=== PATIENT | male | born 1970 | race Caucasian/White ===

== ENCOUNTER 2016-06-05 16:31 | Emergency (ER) | payer OTHER, SELFPAY ==
[~2016-06-05 16:31] MED LIST: AUGM875T27 PO; CELE-19 PO; NEUR600T PO; PERCOCET PO; ROXI1TAB2 PO
--- NOTE | 2016-06-05 18:23 | EDDOCDS ---
Nurse's Notes [facility] Name: Tee Malhotra Age: 46 yrs Sex: Male : 1970 Arrival Date: 06/05/2016 Time: 16:31 Bed PR Private MD: Fredy Ocampo Diagnosis: Acute upper respiratory infection, unspecified Presentation: 06/05 16:35 Presenting complaint: Patient states: sore throat, congestion, cough. Adult Sepsis jo3 Screening: The patient does not have new or worsening altered mentation. Patient's respiratory rate is less than 22. Systolic blood pressure is greater than 100. Patient has a qSOFA score of 0- Negative Sepsis Screen. Suicide/Homicide risk assessment- the patient denies having any suicidal and/or homicidal ideations and does not present with any other emotional, behavioral or mental health complaints. 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 Transition of care: patient was not received from another setting of care. 16:35 Acuity: SHEREE Level 4 jo3 16:35 Method Of Arrival: Walkin/Carried/Asstd jo3 Triage Assessment: 16:37 General: Appears in no apparent distress, Behavior is appropriate for age, cooperative. jo3 HIV screening NA for this visit Offered previously. Neurological: Level of Consciousness is awake, alert, Oriented to person, place, time. Respiratory: No deficits noted. Airway is patent Respiratory effort is even, unlabored. Historical: - Allergies: No known drug Allergies; - Home Meds: 1. none - PMHx: alcoholism (sober x17 years); back sprain (2000); Hypertension; tachycardia; - PSHx: Appendectomy (2013); Tonsillectomy; - Social history: Smoking status: Patient uses tobacco products, heavy tobacco smoker. No barriers to communication noted, The patient speaks fluent Kuwaiti, Speaks appropriately for age. - Family history: Not pertinent. - : The pt / caregiver states he / she is not on anticoagulants. Home medication list is obtained from the patient. - Exposure Risk Screening:: None identified. Screenin:20 Screening information is obtained from the patient. Fall risk: No risks identified. ck1 Assistance ADL's: requires no assistance with activities of daily living. Abuse/DV Screen: The patient / caregiver reports he/she is: not in a situation that causes fear, pain or injury. Nutritional screening: No deficits noted. Advance Directives: Currently, there is no health care proxy. home support is adequate. Assessment: 18:20 General: Appears in no apparent distress, comfortable, Behavior is appropriate for age, ck1 cooperative. Pain: Denies pain. Neurological: Level of Consciousness is awake, alert, obeys commands, Oriented to person, place, time. Respiratory: Respiratory effort is unlabored, Respiratory pattern is regular, symmetrical. GI: No deficits noted. Derm: Skin is pink, warm & dry. Musculoskeletal: Circulation, motion, and sensation intact Range of motion intact in all extremities. Vital Signs: 16:33 BP 147 / 75; Pulse 99; Resp 18 S; Temp 97.1(O); Pulse Ox 99% on R/A; Weight 113.4 kg gr2 (R); Height 6 ft. 0 in. (182.88 cm) (R); Pain 5/10; 18:18 BP 156 / 99; Pulse 87; Resp 18; Temp 97.8(T); Pulse Ox 97% on R/A; Pain 0/10; nb2 16:33 Body Mass Index 33.91 (113.40 kg, 182.88 cm) gr2 Vitals: 16:33 Log In Time: June 05, 2016 at 16:33. gr2 17:22 Strep Screen is obtained and tested: Negative, a GATSNEG culture is ordered in [place] [address] and sent. ED Course: 16:32 Patient visited by Kendell Oliveira. gr2 16:32 Patient moved to Waiting gr2 16:33 Fredy Ocampo PA is Private Physician. gr2 16:34 Patient visited by Kendell Oliveira. gr2 16:34 Patient moved to Pre RCE gr2 16:36 Triage Initiated jo3 16:39 Patient visited by Judy Porras RN. jo3 16:39 Patient moved to Triage 2 jo3 16:39 Patient moved to Triage 3 nb2 16:50 Bartolome Keith [facility]-C [facility] ar2 16:50 Osmel Cardoza MD is Attending Physician. ar2 16:50 Patient visited by Bartolome Keith PA-C. ar2 17:10 [facility] Payment Agreement was scanned into [employer] and attached to record. zo 17:19 -Influenza A&B Rapid Antigen - Nose Sent. jf3 17:22 Patient visited by Lroi Church,JAKOB. ck1 17:22 Patient moved to TR2 jf3 17:24 GATS (NEGATIVE STREP SCREEN) Sent. ck1 17:48 Patient moved to PR2 / nb2 17:53 Patient visited by Lori Church,RN. ck1 18:19 Patient visited by Hina Alvarez. nb2 18:20 The patient / caregiver is instructed regarding the plan of care and ED course. ck1 18:22 No IV's were initiated during this patient's visit. No procedures done that require ck1 assistance. Order Results: Lab Order: -Influenza A&B Rapid Antigen - Nose; SPEC'M 06/05/16 17:14 Test: INFLUENZA A RAPID SCR by ICA; Value: INFLUENZA A RESULTS NEGATIVE; Status: F Test: INFLUENZA A RAPID SCR by ICA; Value: Comments:; Status: F Test: INFLUENZA B RAPID SCR by ICA; Value: INFLUENZA B RESULTS NEGATIVE; Status: F Test Note: ; The Influenza test is a direct rapid immunoassay for the qualitative detection of Influenza viral antigen. Cell culture (Viral Culture) testing should be considered to confirm NEGATIVE results and to assist in detecting other viruses that can provide similar clinical symptoms. Please contact the lab within 24 hours ([phone]) if confirmatory testing is desired. Outcome: 18:15 Discharge ordered by Provider. ar2 18:21 Discharge Assessment: Patient awake, alert and oriented x 3. No cognitive and/or ck1 functional deficits noted. Patient verbalized understanding of disposition instructions. patient administered narcotics - no. The following High Risk Discharge criteria are identified: None. Discharged to home ambulatory. Condition: stable. Discharge instructions given to patient, Instructed on discharge instructions, follow up and referral plans. medication usage, Demonstrated understanding of instructions, medications, Pt was receptive of discharge instructions/ teaching. Prescriptions given X 3. No special radiology studies were completed. Property :Personal belongings accompany Pt. 18:22 Patient left the ED. ck1 Signatures: Lori Church,JAKOB RN ck1 Judy Porras RN RN jo3 Tyra Lala Aaron, PA-C PA-C ar2 Kendell Oliveira gr2 Roger Barnhart RN RN jf3 Hina Alvarez nb2 MTDD
--- NOTE | 2016-06-05 18:23 | EDDOCDS ---
Physician Documentation [facility] Name: Tee Malhotra Age: 46 yrs Sex: Male : 1970 Arrival Date: 06/05/2016 Time: 16:31 Bed PR Private MD: Fredy Ocampo Disposition: 06/05/16 18:15 Discharged to Home/Self Care. Impression: Acute upper respiratory infection, unspecified. - Condition is Stable. - Discharge Instructions: Upper Respiratory Infection, Adult. - Prescriptions for Mucinex 600 mg - take 1 tablet by ORAL route 2 times per day; 30 tablet. benzonatate 200 mg Oral Capsule - take 1 capsule by ORAL route 3 times per day As needed; 30 capsule. Fluticasone 50 mcg/actuation Nasal [place], Suspension - inhale 2 spray by INTRANASAL route once daily; 1 bottle. - Medication Reconciliation, Local Pharmacy Hours form. - Follow up: Private Physician; When: As needed; Reason: Recheck today's complaints. - Problem is new. - Symptoms are unchanged. Historical: - Allergies: No known drug Allergies; - Home Meds: 1. none - PMHx: alcoholism (sober x17 years); back sprain (2000); Hypertension; tachycardia; - PSHx: Appendectomy (2013); Tonsillectomy; - Social history: Smoking status: Patient uses tobacco products, heavy tobacco smoker. No barriers to communication noted, The patient speaks fluent Turkmen, Speaks appropriately for age. - Family history: Not pertinent. - : The pt / caregiver states he / she is not on anticoagulants. Home medication list is obtained from the patient. - Exposure Risk Screening:: None identified. Vital Signs: 06/05 16:33 BP 147 / 75; Pulse 99; Resp 18 S; Temp 97.1(O); Pulse Ox 99% on R/A; Weight 113.4 kg / gr2 250 lbs (R); Height 6 ft. 0 in. (182.88 cm) (R); Pain 5/10; 18:18 BP 156 / 99; Pulse 87; Resp 18; Temp 97.8(T); Pulse Ox 97% on R/A; Pain 0/10; nb2 16:33 Body Mass Index 33.91 (113.40 kg, 182.88 cm) gr2 MDM: 16:55 Strep Screen, Nursing ordered. ar2 16:57 -Influenza A&B Rapid Antigen - Nose Ordered. EDMS 17:09 Financial registration complete. zo 17:10 [facility] Payment Agreement was scanned into [employer] and attached to record. zo 17:23 GATS (NEGATIVE STREP SCREEN) Ordered. EDMS 18:00 -Influenza A&B Rapid Antigen - Nose Reviewed. ar2 Signatures: Dispatcher MedHost EDWY Lori ChurchRN RN ck1 Judy Porras RN RN jo3 Tyra Lala Aaron, PA-C PAAsia ar2 The chart was reviewed and I authenticate all verbal orders and agree with the evaluation and treatment provided.Attachments: 17:10 [facility] Payment Agreement zo MTDD
--- NOTE | 2016-06-07 19:23 | EDDOCDS ---
Physician Documentation [facility] Name: Tee Malhotra Age: 46 yrs Sex: Male : 1970 Arrival Date: 06/05/2016 Time: 16:31 Bed PR Private MD: Fredy Ocampo Disposition: 06/05/16 18:15 Discharged to Home/Self Care. Impression: Acute upper respiratory infection, unspecified. - Condition is Stable. - Discharge Instructions: Upper Respiratory Infection, Adult. - Prescriptions for Mucinex 600 mg - take 1 tablet by ORAL route 2 times per day; 30 tablet. benzonatate 200 mg Oral Capsule - take 1 capsule by ORAL route 3 times per day As needed; 30 capsule. Fluticasone 50 mcg/actuation Nasal [place], Suspension - inhale 2 spray by INTRANASAL route once daily; 1 bottle. - Medication Reconciliation, Local Pharmacy Hours form. - Follow up: Private Physician; When: As needed; Reason: Recheck today's complaints. - Problem is new. - Symptoms are unchanged. Historical: - Allergies: No known drug Allergies; - Home Meds: 1. none - PMHx: alcoholism (sober x17 years); back sprain (2000); Hypertension; tachycardia; - PSHx: Appendectomy (2013); Tonsillectomy; - Social history: Smoking status: Patient uses tobacco products, heavy tobacco smoker. No barriers to communication noted, The patient speaks fluent Niuean, Speaks appropriately for age. - Family history: Not pertinent. - : The pt / caregiver states he / she is not on anticoagulants. Home medication list is obtained from the patient. - Exposure Risk Screening:: None identified. Vital Signs: 06/05 16:33 BP 147 / 75; Pulse 99; Resp 18 S; Temp 97.1(O); Pulse Ox 99% on R/A; Weight 113.4 kg / gr2 250 lbs (R); Height 6 ft. 0 in. (182.88 cm) (R); Pain 5/10; 18:18 BP 156 / 99; Pulse 87; Resp 18; Temp 97.8(T); Pulse Ox 97% on R/A; Pain 0/10; nb2 16:33 Body Mass Index 33.91 (113.40 kg, 182.88 cm) gr2 MDM: 16:55 Strep Screen, Nursing ordered. ar2 16:57 -Influenza A&B Rapid Antigen - Nose Ordered. EDMS 17:09 Financial registration complete. zo 17:10 [facility] Payment Agreement was scanned into [employer] and attached to record. zo 17:23 GATS (NEGATIVE STREP SCREEN) Ordered. EDMS 18:00 -Influenza A&B Rapid Antigen - Nose Reviewed. ar2 06/06 10:49 T-Sheet-- Draft Copy was scanned into [employer] and attached to record. gb Signatures: Dispatcher MedHost EDMS Christine Marshall, Reg Reg gb Paola-Lori Guallpa,RN RN ck1 Judy PorrasRN RN jo3 Tyra Lala Aaron, PA-C PAAsia ar2 The chart was reviewed and I authenticate all verbal orders and agree with the evaluation and treatment provided.Attachments: 06/05 17:10 [facility] Payment Agreement zo 06/06 10:49 T-Sheet-- Draft Copy gb Chart Complete MTDD
--- NOTE | 2016-06-07 19:23 | EDDOCDS ---
Nurse's Notes [facility] Name: Tee Malhotra Age: 46 yrs Sex: Male : 1970 Arrival Date: 06/05/2016 Time: 16:31 Bed PR Private MD: Fredy Ocampo Diagnosis: Acute upper respiratory infection, unspecified Presentation: 06/05 16:35 Presenting complaint: Patient states: sore throat, congestion, cough. Adult Sepsis jo3 Screening: The patient does not have new or worsening altered mentation. Patient's respiratory rate is less than 22. Systolic blood pressure is greater than 100. Patient has a qSOFA score of 0- Negative Sepsis Screen. Suicide/Homicide risk assessment- the patient denies having any suicidal and/or homicidal ideations and does not present with any other emotional, behavioral or mental health complaints. Status: Patient is not a room service server or dependent. Transition of care: patient was not received from another setting of care. 16:35 Acuity: SHEREE Level 4 jo3 16:35 Method Of Arrival: Walkin/Carried/Asstd jo3 Triage Assessment: 16:37 General: Appears in no apparent distress, Behavior is appropriate for age, cooperative. jo3 HIV screening NA for this visit Offered previously. Neurological: Level of Consciousness is awake, alert, Oriented to person, place, time. Respiratory: No deficits noted. Airway is patent Respiratory effort is even, unlabored. Historical: - Allergies: No known drug Allergies; - Home Meds: 1. none - PMHx: alcoholism (sober x17 years); back sprain (2000); Hypertension; tachycardia; - PSHx: Appendectomy (2013); Tonsillectomy; - Social history: Smoking status: Patient uses tobacco products, heavy tobacco smoker. No barriers to communication noted, The patient speaks fluent Cymraes, Speaks appropriately for age. - Family history: Not pertinent. - : The pt / caregiver states he / she is not on anticoagulants. Home medication list is obtained from the patient. - Exposure Risk Screening:: None identified. Screenin:20 Screening information is obtained from the patient. Fall risk: No risks identified. ck1 Assistance ADL's: requires no assistance with activities of daily living. Abuse/DV Screen: The patient / caregiver reports he/she is: not in a situation that causes fear, pain or injury. Nutritional screening: No deficits noted. Advance Directives: Currently, there is no health care proxy. home support is adequate. Assessment: 18:20 General: Appears in no apparent distress, comfortable, Behavior is appropriate for age, ck1 cooperative. Pain: Denies pain. Neurological: Level of Consciousness is awake, alert, obeys commands, Oriented to person, place, time. Respiratory: Respiratory effort is unlabored, Respiratory pattern is regular, symmetrical. GI: No deficits noted. Derm: Skin is pink, warm & dry. Musculoskeletal: Circulation, motion, and sensation intact Range of motion intact in all extremities. Vital Signs: 16:33 BP 147 / 75; Pulse 99; Resp 18 S; Temp 97.1(O); Pulse Ox 99% on R/A; Weight 113.4 kg gr2 (R); Height 6 ft. 0 in. (182.88 cm) (R); Pain 5/10; 18:18 BP 156 / 99; Pulse 87; Resp 18; Temp 97.8(T); Pulse Ox 97% on R/A; Pain 0/10; nb2 16:33 Body Mass Index 33.91 (113.40 kg, 182.88 cm) gr2 Vitals: 16:33 Log In Time: June 05, 2016 at 16:33. gr2 17:22 Strep Screen is obtained and tested: Negative, a GATSNEG culture is ordered in [place] [address] and sent. ED Course: 16:32 Patient visited by Kendell Oliveira. gr2 16:32 Patient moved to Waiting gr2 16:33 Fredy Ocampo PA is Private Physician. gr2 16:34 Patient visited by Kendell Oliveira. gr2 16:34 Patient moved to Pre RCE gr2 16:36 Triage Initiated jo3 16:39 Patient visited by Judy Porras RN. jo3 16:39 Patient moved to Triage 2 jo3 16:39 Patient moved to Triage 3 nb2 16:50 Bartolome Keith [facility]. ar2 16:50 Osmel Cardoza MD is Attending Physician. ar2 16:50 Patient visited by Bartolome Keith PA-C. ar2 17:10 [facility] Payment Agreement was scanned into [employer] and attached to record. zo 17:19 -Influenza A&B Rapid Antigen - Nose Sent. jf3 17:22 Patient visited by Lori Church,JAKOB. ck1 17:22 Patient moved to TR2 jf3 17:24 GATS (NEGATIVE STREP SCREEN) Sent. ck1 17:48 Patient moved to PR2 / nb2 17:53 Patient visited by Lori Church,RN. ck1 18:19 Patient visited by Hina Alvarez. nb2 18:20 The patient / caregiver is instructed regarding the plan of care and ED course. ck1 18:22 No IV's were initiated during this patient's visit. No procedures done that require ck1 assistance. 06/06 10:49 T-Sheet-- Draft Copy was scanned into [employer] and attached to record. gb Order Results: Lab Order: -Influenza A&B Rapid Antigen - Nose; SPEC'M 06/05/16 17:14 Test: INFLUENZA A RAPID SCR by ICA; Value: INFLUENZA A RESULTS NEGATIVE; Status: F Test: INFLUENZA A RAPID SCR by ICA; Value: Comments:; Status: F Test: INFLUENZA B RAPID SCR by ICA; Value: INFLUENZA B RESULTS NEGATIVE; Status: F Test Note: ; The Influenza test is a direct rapid immunoassay for the qualitative detection of Influenza viral antigen. Cell culture (Viral Culture) testing should be considered to confirm NEGATIVE results and to assist in detecting other viruses that can provide similar clinical symptoms. Please contact the lab within 24 hours ([phone]) if confirmatory testing is desired. Lab Order: GATS (NEGATIVE STREP SCREEN); SPEC'M 06/05/16 00:00 Test: GATS CULTURE (NEG STREP SCR); Value: GATS RESULT NEGATIVE FOR STREP PYOGENES (GROUP A); Status: F Test: GATS CULTURE (NEG STREP SCR); Value: <EXTERNAL COMMENT eCWMed> FULL REPORT IN LAB NOTES (eCW and Medent).; Status: F Outcome: 06/05 18:15 Discharge ordered by Provider. ar2 18:21 Discharge Assessment: Patient awake, alert and oriented x 3. No cognitive and/or ck1 functional deficits noted. Patient verbalized understanding of disposition instructions. patient administered narcotics - no. The following High Risk Discharge criteria are identified: None. Discharged to home ambulatory. Condition: stable. Discharge instructions given to patient, Instructed on discharge instructions, follow up and referral plans. medication usage, Demonstrated understanding of instructions, medications, Pt was receptive of discharge instructions/ teaching. Prescriptions given X 3. No special radiology studies were completed. Property :Personal belongings accompany Pt. 18:22 Patient left the ED. ck1 Signatures: Christine Marshall, Reg Reg gb Lori Church,RN RN ck1 Judy PorrasRN RN veena3 Trya Lala Aaron, PA-C PA-C ar2 Kendell Oliveira gr2 Roger Barnhart,JAKOB RN jf3 Hina Alvarez nb2 Chart Complete MTDD
--- NOTE | 2016-06-07 19:23 | EDDOCDS ---
Physician Documentation [facility] Name: Tee Malhotra Age: 46 yrs Sex: Male : 1970 Arrival Date: 06/05/2016 Time: 16:31 Bed PR Private MD: Fredy Ocampo Disposition: 06/05/16 18:15 Discharged to Home/Self Care. Impression: Acute upper respiratory infection, unspecified. - Condition is Stable. - Discharge Instructions: Upper Respiratory Infection, Adult. - Prescriptions for Mucinex 600 mg - take 1 tablet by ORAL route 2 times per day; 30 tablet. benzonatate 200 mg Oral Capsule - take 1 capsule by ORAL route 3 times per day As needed; 30 capsule. Fluticasone 50 mcg/actuation Nasal [place], Suspension - inhale 2 spray by INTRANASAL route once daily; 1 bottle. - Medication Reconciliation, Local Pharmacy Hours form. - Follow up: Private Physician; When: As needed; Reason: Recheck today's complaints. - Problem is new. - Symptoms are unchanged. Historical: - Allergies: No known drug Allergies; - Home Meds: 1. none - PMHx: alcoholism (sober x17 years); back sprain (2000); Hypertension; tachycardia; - PSHx: Appendectomy (2013); Tonsillectomy; - Social history: Smoking status: Patient uses tobacco products, heavy tobacco smoker. No barriers to communication noted, The patient speaks fluent Swiss, Speaks appropriately for age. - Family history: Not pertinent. - : The pt / caregiver states he / she is not on anticoagulants. Home medication list is obtained from the patient. - Exposure Risk Screening:: None identified. Vital Signs: 06/05 16:33 BP 147 / 75; Pulse 99; Resp 18 S; Temp 97.1(O); Pulse Ox 99% on R/A; Weight 113.4 kg / gr2 250 lbs (R); Height 6 ft. 0 in. (182.88 cm) (R); Pain 5/10; 18:18 BP 156 / 99; Pulse 87; Resp 18; Temp 97.8(T); Pulse Ox 97% on R/A; Pain 0/10; nb2 16:33 Body Mass Index 33.91 (113.40 kg, 182.88 cm) gr2 MDM: 16:55 Strep Screen, Nursing ordered. ar2 16:57 -Influenza A&B Rapid Antigen - Nose Ordered. EDMS 17:09 Financial registration complete. zo 17:10 [facility] Payment Agreement was scanned into [employer] and attached to record. zo 17:23 GATS (NEGATIVE STREP SCREEN) Ordered. EDMS 18:00 -Influenza A&B Rapid Antigen - Nose Reviewed. ar2 06/06 10:49 T-Sheet-- Draft Copy was scanned into [employer] and attached to record. gb Signatures: Dispatcher MedHost EDMS Christine Marshall, Reg Reg gb Paola-Lori Guallpa,RN RN ck1 Judy PorrasRN RN jo3 Tyra Lala Aaron, PA-C PAAsia ar2 The chart was reviewed and I authenticate all verbal orders and agree with the evaluation and treatment provided.Attachments: 06/05 17:10 [facility] Payment Agreement zo 06/06 10:49 T-Sheet-- Draft Copy gb Chart Complete MTDD
== END 2016-06-05 18:22 | disposition home or self-care (01) ==
LOC: M ED 16:31
DX: J02.9 Acute pharyngitis, unspecified (principal); F10.21 Alcohol dependence, in remission; I10 Essential (primary) hypertension; R00.0 Tachycardia, unspecified; F17.210 Nicotine dependence, cigarettes, uncomplicated

== ENCOUNTER 2016-06-08 03:20 | Emergency (ER) | payer SELFPAY ==
[2016-06-08] MEDS ORDERED: LEVALBUTEROL 1.25 MG/0.5 ML CONCENTRATE NEB As Ordered ONE (04:46)
[2016-06-08] MEDS ORDERED: dexameTHASONE 20 MG/5 ML VIAL (J1100) As Ordered ONE (04:48)
--- NOTE | 2016-06-08 06:43 | EDDOCDS ---
Physician Documentation [facility] Name: Tee Malhotra Age: 46 yrs Sex: Male : 1970 Arrival Date: 06/08/2016 Time: 03:20 Bed 17 Private MD: Disposition: 06/08/16 06:30 Discharged to Home/Self Care. Impression: Acute bronchitis. - Condition is Stable. - Prescriptions for Prednisone 20 mg Oral Tablet - take 3 tablets by ORAL route once daily for 4 days; 4 tablet. Zithromax Z- Larry 250 mg Oral Tablet - take 1 tablet by ORAL route as directed for 5 days Day 1- take two tablets once. Day 2, 3, 4 , 5 take one tablet once daily.; 6 tablet. - Medication Reconciliation, Local Pharmacy Hours form. - Follow up: Private Physician; When: Call to arrange an appointment; Reason: Recheck today's complaints. - Problem is new. - Symptoms have improved. Historical: - Allergies: No known drug Allergies; - Home Meds: 1. none - PMHx: alcoholism (sober x17 years); back sprain (2000); Hypertension; tachycardia; - PSHx: Tonsillectomy; Appendectomy; - Social history: Smoking status: Patient uses tobacco products, current every day smoker. No barriers to communication noted, The patient speaks fluent Georgian, Speaks appropriately for age. - Family history: Not pertinent. - : The pt / caregiver states he / she is not on anticoagulants. Home medication list is obtained from the patient. - Exposure Risk Screening:: None identified. Vital Signs: 06/08 03:32 BP 139 / 96; Pulse 94; Resp 18; Temp 98.5(T); Pulse Ox 95% on R/A; Weight 113.4 kg / cz 250 lbs; Height 6 ft. (182.88 cm); 06:40 BP 133 / 81; Pulse 90; Resp 20; Temp 98.9(TE); Pulse Ox 95% ; Pain 0/10; ko2 03:32 Body Mass Index 33.91 (113.40 kg, 182.88 cm) cz MDM: 04:30 Chest, 2 View (pa\E\lat) Ordered. EDMS 04:34 IV Saline Lock ordered. cs11 04:34 Dexamethasone 12 mg IV at bolus once ordered. cs11 04:34 Levalbuterol 1.25 mg Nebulizer every 15 minutes x3 ordered. cs11 04:34 Call Respiratory ordered. cs11 04:39 Call Respiratory complete. ml3 04:49 Financial registration complete. [facility] 05:16 [facility] Payment Agreement was scanned into [employer] and attached to record. [facility] Administered Medications: 04:50 Drug: Levalbuterol 1.25 mg [levalbuterol 1.25 mg/0.5 mL solution for nebulization (0.5 nk1 mL)] Route: Nebulizer; 04:55 Follow up: Response: Nebulizer completed nk1 04:56 Drug: Levalbuterol 1.25 mg [levalbuterol 1.25 mg/0.5 mL solution for nebulization (0.5 nk1 mL)] Route: Nebulizer; 05:08 Follow up: Response: Nebulizer completed nk1 05:16 Follow up: Response: Nebulizer completed nk1 04:57 Drug: Dexamethasone 12 mg [dexamethasone 4 mg/mL injection solution] Route: IV; Rate: ko2 bolus; Site: right forearm; Signatures: Dispatcher [employer]Ho Aron Interiano, RN RN Rita Pedraza, Payroll And Benefits Analyst Unit ml3 Gordon Michael DO DO cs11 Homa Whitnye RN RN ko2 Hook, Sandra [facility] [place] nk1 The chart was reviewed and I authenticate all verbal orders and agree with the evaluation and treatment provided.Attachments: 05:16 [facility] Payment Agreement [facility] MTDD
--- NOTE | 2016-06-08 06:43 | EDDOCDS ---
Nurse's Notes [facility] Name: Tee Malhotra Age: 46 yrs Sex: Male : 1970 Arrival Date: 06/08/2016 Time: 03:20 Bed 17 Private MD: Diagnosis: Acute bronchitis Presentation: 06/08 03:28 Presenting complaint: Patient states: he was seen 2 days ago for URI returns this a.m. cz with continued complaints of cough congestion and difficulty breathing. Adult Sepsis Screening: The patient does not have new or worsening altered mentation. Patient's respiratory rate is less than 22. Systolic blood pressure is greater than 100. Patient has a qSOFA score of 0- Negative Sepsis Screen. Suicide/Homicide risk assessment- the patient denies having any suicidal and/or homicidal ideations and does not present with any other emotional, behavioral or mental health complaints. 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 Transition of care: patient was not received from another setting of care. 03:28 Acuity: SHEREE Level 3 cz 03:28 Method Of Arrival: Walkin/Carried/Asstd cz Triage Assessment: 03:32 General: Appears uncomfortable. Pain: Location: chest Pain currently is 7 out of 10 on cz a pain scale. HIV screening NA for this visit Offered previously. Historical: - Allergies: No known drug Allergies; - Home Meds: 1. none - PMHx: alcoholism (sober x17 years); back sprain (2000); Hypertension; tachycardia; - PSHx: Tonsillectomy; Appendectomy; - Social history: Smoking status: Patient uses tobacco products, current every day smoker. No barriers to communication noted, The patient speaks fluent Kenyan, Speaks appropriately for age. - Family history: Not pertinent. - : The pt / caregiver states he / she is not on anticoagulants. Home medication list is obtained from the patient. - Exposure Risk Screening:: None identified. Screenin:41 Screening information is obtained from the patient. Fall risk: No risks identified. ko2 Assistance ADL's: requires no assistance with activities of daily living. Abuse/DV Screen: The patient / caregiver reports he/she is: not in a situation that causes fear, pain or injury. Nutritional screening: No deficits noted. Advance Directives: Currently, there is no health care proxy. There is no active DNR order. There is no living will. There is no Power of Facer Operator. home support is adequate. Assessment: 04:40 General: Appears in no apparent distress, Behavior is appropriate for age, cooperative. ko2 Neurological: Level of Consciousness is awake, alert. Respiratory: Airway is patent Respiratory effort is even, unlabored, Respiratory pattern is regular, symmetrical, Breath sounds are diminished bilaterally. Reports cough that is persistent. Derm: Skin is normal. 05:24 General: Appears in no apparent distress, comfortable, Behavior is appropriate for age, ko2 cooperative. Pain: Denies pain. Neurological: Level of Consciousness is awake, alert. Respiratory: Airway is patent Respiratory effort is even, unlabored. Derm: Skin is normal. 06:26 General: Appears in no apparent distress, comfortable, Behavior is appropriate for age, ko2 cooperative. Pain: Denies pain. Neurological: Level of Consciousness is awake, alert. Respiratory: Airway is patent Respiratory effort is even, unlabored, Respiratory pattern is regular, symmetrical. Derm: Skin is normal. Vital Signs: 03:32 BP 139 / 96; Pulse 94; Resp 18; Temp 98.5(T); Pulse Ox 95% on R/A; Weight 113.4 kg; cz Height 6 ft. (182.88 cm); 06:40 BP 133 / 81; Pulse 90; Resp 20; Temp 98.9(TE); Pulse Ox 95% ; Pain 0/10; ko2 03:32 Body Mass Index 33.91 (113.40 kg, 182.88 cm) cz Vitals: 03:32 Log In Time: June 08, 2016 at 03:22. ED Course: 03:22 Patient visited by Cinthia Mar Reg. hs2 03:22 Patient moved to Waiting hs2 03:28 Patient moved to Triage 1 cz 03:30 Triage Initiated cz 03:34 Patient moved to Pre RCE cz 04:02 Paola Sanders RN is Primary Nurse. cz 04:02 Homa Whitney RN is Primary Nurse. cz 04:02 Patient moved to 17 cz 04:20 Patient visited by Homa Whitney RN. ko2 04:23 Gordon Michael DO is Attending Physician. cs11 04:23 Patient visited by Gordon Michael DO. cs11 04:40 Primary Nurse role handed off by Paola Sanders RN ko2 04:41 Inserted saline lock: 20 gauge in right antecubital area. ko2 04:42 The patient / caregiver is instructed regarding the plan of care and ED course. ko2 04:57 Patient visited by Homa Whitney RN. ko2 05:16 [facility] Payment Agreement was scanned into [employer] and attached to record. [facility] [address] 05:24 Patient visited by Homa Whitney RN. ko2 06:24 Patient visited by Homa Whitney RN. ko2 06:41 Discontinued lock intact, bleeding controlled, pressure dressing applied, No ko2 redness/swelling at site. No procedures done that require assistance. No procedures done that require assistance. Administered Medications: 04:50 Drug: Levalbuterol 1.25 mg [levalbuterol 1.25 mg/0.5 mL solution for nebulization (0.5 nk1 mL)] Route: Nebulizer; 04:55 Follow up: Response: Nebulizer completed nk1 04:56 Drug: Levalbuterol 1.25 mg [levalbuterol 1.25 mg/0.5 mL solution for nebulization (0.5 nk1 mL)] Route: Nebulizer; 05:08 Follow up: Response: Nebulizer completed nk1 05:16 Follow up: Response: Nebulizer completed nk1 04:57 Drug: Dexamethasone 12 mg [dexamethasone 4 mg/mL injection solution] Route: IV; Rate: ko2 bolus; Site: right forearm; RT: 04:50 Initial Med Neb Given as ordered Patient tolerated procedure well without adverse nk1 effect. Respiratory: Airway is patent Respiratory effort is even, frequent congested cough Breath sounds are coarse Breath sounds with wheezes bilaterally. 04:56 Subsequent Med Neb Given as ordered Patient tolerated procedure well without adverse nk1 effect. Respiratory: Breath sounds are coarse fewer wheezes which are coarser and lower in pitch. Pt has a congested cough which he reports is productive of brown sputum. 05:08 Respiratory: Breath sounds are coarse and nearly clear. only a few scattered wheezes nk1 remain. Patient states he is able to take deeper breaths. Order Results: There are currently no results for this order. Outcome: 06:30 Discharge ordered by Provider. cs11 06:42 Discharge Assessment: Patient awake, alert and oriented x 3. No cognitive and/or ko2 functional deficits noted. Patient verbalized understanding of disposition instructions. patient administered narcotics - no. The following High Risk Discharge criteria are identified: None. Discharged to home ambulatory. Condition: stable. Discharge instructions given to patient, Instructed on discharge instructions, follow up and referral plans. medication usage, Demonstrated understanding of instructions, medications, Pt was receptive of discharge instructions/ teaching. Prescriptions given X 2. No special radiology studies were completed. Property sent home with patient. 06:42 Patient left the ED. ko2 Signatures: Aron Pascual, RN RN cz Glo Smallwood,RT RT nk1 Gordon Michael DO DO cs11 Homa Whitney RN RN ko2 Ciera Schultz Hillary, Reg Reg hs2 Corrections: (The following items were deleted from the chart) 05:00 04:56 Response: Nebulizer completed nk1 nk1 MTDD
--- NOTE | 2016-06-08 08:00 | REP ---
Chest x-ray: Two views. History: Shortness of breath . Comparison study: June 03, 2019 . Findings: The lungs are well inflated and free of infiltrate. The pleural angles are sharp. The heart size is normal. Pulmonary vasculature is not increased. No significant bony abnormality is seen. Impression: Negative chest x-ray. Signed by Garret Smith MD 06/08/2016 07:52 A
--- NOTE | 2016-06-10 07:44 | EDDOCDS ---
Nurse's Notes [facility] Name: Tee Malhotra Age: 46 yrs Sex: Male : 1970 Arrival Date: 06/08/2016 Time: 03:20 Bed 17 Private MD: Diagnosis: Acute bronchitis Presentation: 06/08 03:28 Presenting complaint: Patient states: he was seen 2 days ago for URI returns this a.m. cz with continued complaints of cough congestion and difficulty breathing. Adult Sepsis Screening: The patient does not have new or worsening altered mentation. Patient's respiratory rate is less than 22. Systolic blood pressure is greater than 100. Patient has a qSOFA score of 0- Negative Sepsis Screen. Suicide/Homicide risk assessment- the patient denies having any suicidal and/or homicidal ideations and does not present with any other emotional, behavioral or mental health complaints. 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 Transition of care: patient was not received from another setting of care. 03:28 Acuity: SHEREE Level 3 cz 03:28 Method Of Arrival: Walkin/Carried/Asstd cz Triage Assessment: 03:32 General: Appears uncomfortable. Pain: Location: chest Pain currently is 7 out of 10 on cz a pain scale. HIV screening NA for this visit Offered previously. Historical: - Allergies: No known drug Allergies; - Home Meds: 1. none - PMHx: alcoholism (sober x17 years); back sprain (2000); Hypertension; tachycardia; - PSHx: Tonsillectomy; Appendectomy; - Social history: Smoking status: Patient uses tobacco products, current every day smoker. No barriers to communication noted, The patient speaks fluent Chinese, Speaks appropriately for age. - Family history: Not pertinent. - : The pt / caregiver states he / she is not on anticoagulants. Home medication list is obtained from the patient. - Exposure Risk Screening:: None identified. Screenin:41 Screening information is obtained from the patient. Fall risk: No risks identified. ko2 Assistance ADL's: requires no assistance with activities of daily living. Abuse/DV Screen: The patient / caregiver reports he/she is: not in a situation that causes fear, pain or injury. Nutritional screening: No deficits noted. Advance Directives: Currently, there is no health care proxy. There is no active DNR order. There is no living will. There is no Power of Dental Service Technician. home support is adequate. Assessment: 04:40 General: Appears in no apparent distress, Behavior is appropriate for age, cooperative. ko2 Neurological: Level of Consciousness is awake, alert. Respiratory: Airway is patent Respiratory effort is even, unlabored, Respiratory pattern is regular, symmetrical, Breath sounds are diminished bilaterally. Reports cough that is persistent. Derm: Skin is normal. 05:24 General: Appears in no apparent distress, comfortable, Behavior is appropriate for age, ko2 cooperative. Pain: Denies pain. Neurological: Level of Consciousness is awake, alert. Respiratory: Airway is patent Respiratory effort is even, unlabored. Derm: Skin is normal. 06:26 General: Appears in no apparent distress, comfortable, Behavior is appropriate for age, ko2 cooperative. Pain: Denies pain. Neurological: Level of Consciousness is awake, alert. Respiratory: Airway is patent Respiratory effort is even, unlabored, Respiratory pattern is regular, symmetrical. Derm: Skin is normal. Vital Signs: 03:32 BP 139 / 96; Pulse 94; Resp 18; Temp 98.5(T); Pulse Ox 95% on R/A; Weight 113.4 kg; cz Height 6 ft. (182.88 cm); 06:40 BP 133 / 81; Pulse 90; Resp 20; Temp 98.9(TE); Pulse Ox 95% ; Pain 0/10; ko2 03:32 Body Mass Index 33.91 (113.40 kg, 182.88 cm) cz Vitals: 03:32 Log In Time: June 08, 2016 at 03:22. ED Course: 03:22 Patient visited by Cinthia Mar Reg. hs2 03:22 Patient moved to Waiting hs2 03:28 Patient moved to Triage 1 cz 03:30 Triage Initiated cz 03:34 Patient moved to Pre RCE cz 04:02 Paola Sanders RN is Primary Nurse. cz 04:02 Homa Whitney RN is Primary Nurse. cz 04:02 Patient moved to 17 cz 04:20 Patient visited by Homa Whitney RN. ko2 04:23 Gordon Michael DO is Attending Physician. cs11 04:23 Patient visited by Gordon Michael DO. cs11 04:40 Primary Nurse role handed off by Paola Sanders RN ko2 04:41 Inserted saline lock: 20 gauge in right antecubital area. ko2 04:42 The patient / caregiver is instructed regarding the plan of care and ED course. ko2 04:57 Patient visited by Homa Whitney RN. ko2 05:16 [facility] Payment Agreement was scanned into [employer] and attached to record. [facility] 05:24 Patient visited by Homa Whitney RN. ko2 06:24 Patient visited by Homa Whitney RN. ko2 06:41 Discontinued lock intact, bleeding controlled, pressure dressing applied, No ko2 redness/swelling at site. No procedures done that require assistance. No procedures done that require assistance. 08:12 Chest, 2 View (pa\E\lat) Returned. EDOH 16:05 T-Sheet-- Draft Copy was scanned into [employer] and attached to record. klr Administered Medications: 04:50 Drug: Levalbuterol 1.25 mg [levalbuterol 1.25 mg/0.5 mL solution for nebulization (0.5 nk1 mL)] Route: Nebulizer; 04:55 Follow up: Response: Nebulizer completed nk1 04:56 Drug: Levalbuterol 1.25 mg [levalbuterol 1.25 mg/0.5 mL solution for nebulization (0.5 nk1 mL)] Route: Nebulizer; 05:08 Follow up: Response: Nebulizer completed nk1 05:16 Follow up: Response: Nebulizer completed nk1 04:57 Drug: Dexamethasone 12 mg [dexamethasone 4 mg/mL injection solution] Route: IV; Rate: ko2 bolus; Site: right forearm; RT: 04:50 Initial Med Neb Given as ordered Patient tolerated procedure well without adverse nk1 effect. Respiratory: Airway is patent Respiratory effort is even, frequent congested cough Breath sounds are coarse Breath sounds with wheezes bilaterally. 04:56 Subsequent Med Neb Given as ordered Patient tolerated procedure well without adverse nk1 effect. Respiratory: Breath sounds are coarse fewer wheezes which are coarser and lower in pitch. Pt has a congested cough which he reports is productive of brown sputum. 05:08 Respiratory: Breath sounds are coarse and nearly clear. only a few scattered wheezes nk1 remain. Patient states he is able to take deeper breaths. Order Results: Radiology Order: Chest, 2 View (pa\E\lat) Test: Chest, 2 View (pa\E\lat) REASON FOR EXAMINATION: Shortness of Breath; Chest x-ray: Two views.; ; History: Shortness of breath .; ; Comparison study: June 03, 2019 .; ; Findings: The lungs are well inflated and free of infiltrate. The pleural; angles are sharp. The heart size is normal. Pulmonary vasculature is not; increased. No significant bony abnormality is seen.; ; Impression:; ; Negative chest x-ray.; ; ; Signed by; Garret Smith MD 06/08/2016 07:52 A; Outcome: 06:30 Discharge ordered by Provider. cs11 06:42 Discharge Assessment: Patient awake, alert and oriented x 3. No cognitive and/or ko2 functional deficits noted. Patient verbalized understanding of disposition instructions. patient administered narcotics - no. The following High Risk Discharge criteria are identified: None. Discharged to home ambulatory. Condition: stable. Discharge instructions given to patient, Instructed on discharge instructions, follow up and referral plans. medication usage, Demonstrated understanding of instructions, medications, Pt was receptive of discharge instructions/ teaching. Prescriptions given X 2. No special radiology studies were completed. Property sent home with patient. 06:42 Patient left the ED. ko2 Signatures: Dispatcher [employer] EDMS Aron Pascual, JAKOB RN cz Glo Small[place],RT RT nk1 Gordon Michael DO DO cs11 Homa Whitney RN RN ko2 Ciera Schultz Hillary, Reg Reg hs2 Yeimi Kinney Corrections: (The following items were deleted from the chart) 05:00 04:56 Response: Nebulizer completed nk1 nk1 Chart Complete MTDD
--- NOTE | 2016-06-10 07:44 | EDDOCDS ---
Physician Documentation [facility] Name: Tee Malhotra Age: 46 yrs Sex: Male : 1970 Arrival Date: 06/08/2016 Time: 03:20 Bed 17 Private MD: Disposition: 06/08/16 06:30 Discharged to Home/Self Care. Impression: Acute bronchitis. - Condition is Stable. - Prescriptions for Prednisone 20 mg Oral Tablet - take 3 tablets by ORAL route once daily for 4 days; 4 tablet. Zithromax Z- Larry 250 mg Oral Tablet - take 1 tablet by ORAL route as directed for 5 days Day 1- take two tablets once. Day 2, 3, 4 , 5 take one tablet once daily.; 6 tablet. - Medication Reconciliation, Local Pharmacy Hours form. - Follow up: Private Physician; When: Call to arrange an appointment; Reason: Recheck today's complaints. - Problem is new. - Symptoms have improved. Historical: - Allergies: No known drug Allergies; - Home Meds: 1. none - PMHx: alcoholism (sober x17 years); back sprain (2000); Hypertension; tachycardia; - PSHx: Tonsillectomy; Appendectomy; - Social history: Smoking status: Patient uses tobacco products, current every day smoker. No barriers to communication noted, The patient speaks fluent Yi, Speaks appropriately for age. - Family history: Not pertinent. - : The pt / caregiver states he / she is not on anticoagulants. Home medication list is obtained from the patient. - Exposure Risk Screening:: None identified. Vital Signs: 06/08 03:32 BP 139 / 96; Pulse 94; Resp 18; Temp 98.5(T); Pulse Ox 95% on R/A; Weight 113.4 kg / cz 250 lbs; Height 6 ft. (182.88 cm); 06:40 BP 133 / 81; Pulse 90; Resp 20; Temp 98.9(TE); Pulse Ox 95% ; Pain 0/10; ko2 03:32 Body Mass Index 33.91 (113.40 kg, 182.88 cm) cz MDM: 04:30 Chest, 2 View (pa\E\lat) Ordered. EDMS 04:34 IV Saline Lock ordered. cs11 04:34 Dexamethasone 12 mg IV at bolus once ordered. cs11 04:34 Levalbuterol 1.25 mg Nebulizer every 15 minutes x3 ordered. cs11 04:34 Call Respiratory ordered. cs11 04:39 Call Respiratory complete. ml3 04:49 Financial registration complete. [facility] 05:16 [facility] Payment Agreement was scanned into [employer] and attached to record. [facility] 16:05 T-Sheet-- Draft Copy was scanned into [employer] and attached to record. klr Administered Medications: 04:50 Drug: Levalbuterol 1.25 mg [levalbuterol 1.25 mg/0.5 mL solution for nebulization (0.5 nk1 mL)] Route: Nebulizer; 04:55 Follow up: Response: Nebulizer completed nk1 04:56 Drug: Levalbuterol 1.25 mg [levalbuterol 1.25 mg/0.5 mL solution for nebulization (0.5 nk1 mL)] Route: Nebulizer; 05:08 Follow up: Response: Nebulizer completed nk1 05:16 Follow up: Response: Nebulizer completed nk1 04:57 Drug: Dexamethasone 12 mg [dexamethasone 4 mg/mL injection solution] Route: IV; Rate: ko2 bolus; Site: right forearm; Signatures: Dispatcher [employer] Aron Interiano, Rita Isaacs RN, Sales And Marketing Manager Unit ml3 Gordon Michael DO DO cs11 Homa Whitney RN RN ko2 Ciera Schultz Yeimi Carbone Nora RT nk1 The chart was reviewed and I authenticate all verbal orders and agree with the evaluation and treatment provided.Attachments: 05:16 [facility] Payment Agreement [facility] 16:05 T-Sheet-- Draft Copy klr Chart Complete MTDD
--- NOTE | 2016-06-10 07:44 | EDDOCDS ---
Physician Documentation [facility] Name: Tee Malhotra Age: 46 yrs Sex: Male : 1970 Arrival Date: 06/08/2016 Time: 03:20 Bed 17 Private MD: Disposition: 06/08/16 06:30 Discharged to Home/Self Care. Impression: Acute bronchitis. - Condition is Stable. - Prescriptions for Prednisone 20 mg Oral Tablet - take 3 tablets by ORAL route once daily for 4 days; 4 tablet. Zithromax Z- Larry 250 mg Oral Tablet - take 1 tablet by ORAL route as directed for 5 days Day 1- take two tablets once. Day 2, 3, 4 , 5 take one tablet once daily.; 6 tablet. - Medication Reconciliation, Local Pharmacy Hours form. - Follow up: Private Physician; When: Call to arrange an appointment; Reason: Recheck today's complaints. - Problem is new. - Symptoms have improved. Historical: - Allergies: No known drug Allergies; - Home Meds: 1. none - PMHx: alcoholism (sober x17 years); back sprain (2000); Hypertension; tachycardia; - PSHx: Tonsillectomy; Appendectomy; - Social history: Smoking status: Patient uses tobacco products, current every day smoker. No barriers to communication noted, The patient speaks fluent Arabic, Speaks appropriately for age. - Family history: Not pertinent. - : The pt / caregiver states he / she is not on anticoagulants. Home medication list is obtained from the patient. - Exposure Risk Screening:: None identified. Vital Signs: 06/08 03:32 BP 139 / 96; Pulse 94; Resp 18; Temp 98.5(T); Pulse Ox 95% on R/A; Weight 113.4 kg / cz 250 lbs; Height 6 ft. (182.88 cm); 06:40 BP 133 / 81; Pulse 90; Resp 20; Temp 98.9(TE); Pulse Ox 95% ; Pain 0/10; ko2 03:32 Body Mass Index 33.91 (113.40 kg, 182.88 cm) cz MDM: 04:30 Chest, 2 View (pa\E\lat) Ordered. EDMS 04:34 IV Saline Lock ordered. cs11 04:34 Dexamethasone 12 mg IV at bolus once ordered. cs11 04:34 Levalbuterol 1.25 mg Nebulizer every 15 minutes x3 ordered. cs11 04:34 Call Respiratory ordered. cs11 04:39 Call Respiratory complete. ml3 04:49 Financial registration complete. [facility] 05:16 [facility] Payment Agreement was scanned into [employer] and attached to record. [facility] 16:05 T-Sheet-- Draft Copy was scanned into [employer] and attached to record. klr Administered Medications: 04:50 Drug: Levalbuterol 1.25 mg [levalbuterol 1.25 mg/0.5 mL solution for nebulization (0.5 nk1 mL)] Route: Nebulizer; 04:55 Follow up: Response: Nebulizer completed nk1 04:56 Drug: Levalbuterol 1.25 mg [levalbuterol 1.25 mg/0.5 mL solution for nebulization (0.5 nk1 mL)] Route: Nebulizer; 05:08 Follow up: Response: Nebulizer completed nk1 05:16 Follow up: Response: Nebulizer completed nk1 04:57 Drug: Dexamethasone 12 mg [dexamethasone 4 mg/mL injection solution] Route: IV; Rate: ko2 bolus; Site: right forearm; Signatures: Dispatcher [employer] Aron Interiano, Rita Isaacs RN, Laboratory Courier Unit ml3 Gordon Michael DO DO cs11 Homa Whitney RN RN ko2 Ciera Schultz Yeimi Carbone Nora RT nk1 The chart was reviewed and I authenticate all verbal orders and agree with the evaluation and treatment provided.Attachments: 05:16 [facility] Payment Agreement [facility] 16:05 T-Sheet-- Draft Copy klr Chart Complete MTDD
== END 2016-06-08 06:42 | disposition home or self-care (01) ==
LOC: M ED 03:20
DX: J20.9 Acute bronchitis, unspecified (principal); I10 Essential (primary) hypertension; R00.0 Tachycardia, unspecified; Z90.89 Acquired absence of other organs; F17.200 Nicotine dependence, unspecified, uncomplicated
CPT/HCPCS: 71020; 94640; 96374; 99284; J1100

== ENCOUNTER 2016-06-09 03:54 | Emergency (ER) | payer SELFPAY ==
[2016-06-09] MEDS ORDERED: IPRATROPIUM 0.5MG/ALBUTEROL 2.5MG INH SOL UD 3ML (DUONEB)(J7620) As Ordered ONE ×2 (05:09→05:56)
[2016-06-09] MEDS ORDERED: dexameTHASONE 20 MG/5 ML VIAL (J1100) As Ordered ONE (05:10)
--- NOTE | 2016-06-09 06:24 | EDDOCDS ---
Physician Documentation [facility] Name: Tee Malhotra Age: 46 yrs Sex: Male : 1970 Arrival Date: 06/09/2016 Time: 03:54 Bed 5 Private MD: Disposition: 06/09/16 06:06 Discharged to Home/Self Care. Impression: Acute bronchitis, Nicotine dependence, cigarettes. - Condition is Stable. - Prescriptions for Home Nebulizer - Dx: (asthma). Duration: (chronic). ipratropium- albuterol 0.5 mg-3 mg(2.5 mg base)/3 mL Inhalation Solution for Nebulization - inhale 1 ampule by NEBULIZATION route 4 times per day As needed; 1 box. - Medication Reconciliation, Local Pharmacy Hours form. - Follow up: Private Physician; When: Call to arrange an appointment; Reason: Recheck today's complaints. - Problem is an ongoing problem. - Symptoms have improved. Historical: - Allergies: No known drug Allergies; - Home Meds: 1. albuterol inhaler pt states inhaler outdated by 9 months (Last dose: 06/08/2016 20:00) 2. Zithromax 250 mg Oral tab 3. prednisone 20 mg Oral tab once daily - PMHx: alcoholism (sober x17 years); back sprain (2000); Hypertension; tachycardia; - PSHx: Tonsillectomy; Appendectomy; - Social history: Smoking status: Patient uses tobacco products, current every day smoker. No barriers to communication noted, The patient speaks fluent Turkmen, Speaks appropriately for age. - Family history: Not pertinent. - : The pt / caregiver states he / she is not on anticoagulants. Home medication list is obtained from the patient. - Exposure Risk Screening:: None identified. Vital Signs: 06/09 04:04 BP 142 / 87; Pulse 117; Resp 16; Temp 98; Pulse Ox 95% ; Weight 113.4 kg / 250 lbs; cz Height 6 ft. (182.88 cm); 04:04 Body Mass Index 33.91 (113.40 kg, 182.88 cm) cz MDM: 04:58 Albuterol-Ipratropium 1 neb Nebulizer every 20 minutes x3 ordered. cs11 04:58 Call Respiratory ordered. cs11 04:58 IV Saline Lock ordered. cs11 04:58 Dexamethasone 14 mg IV at bolus once ordered. cs11 05:03 Call Respiratory complete. ml3 05:07 Financial registration complete. pm4 05:10 [facility] Payment Agreement was scanned into [employer] and attached to record. pm4 Administered Medications: 05:12 Drug: Albuterol-Ipratropium 1 neb [ipratropium-albuterol 0.5 mg-3 mg(2.5 mg base)/3 mL jh6 nebulization soln (1 neb)] Route: Nebulizer; 05:24 Drug: Dexamethasone 14 mg [dexamethasone 4 mg/mL injection solution] Route: IV; Rate: mv5 bolus; Site: left antecubital; 06:22 Follow up: Response: No Adverse Reaction mv5 05:31 Drug: Albuterol-Ipratropium 1 neb [ipratropium-albuterol 0.5 mg-3 mg(2.5 mg base)/3 mL jh6 nebulization soln (1 neb)] Route: Nebulizer; 05:58 Drug: Albuterol-Ipratropium 1 neb [ipratropium-albuterol 0.5 mg-3 mg(2.5 mg base)/3 mL jh6 nebulization soln (1 neb)] Route: Nebulizer; Signatures: Aron Pascual, JAKOB RN cz Rita Segovia, Shank Boner Unit ml3 Gordon Michael DO DO cs11 Jose Luis Garcia, Reg Reg pm4 Sushma Bertrand RN RN mv5 Leobardo Masterson jh6 The chart was reviewed and I authenticate all verbal orders and agree with the evaluation and treatment provided.Corrections: (The following items were deleted from the chart) 04:09 04:04 Home Meds: albuterol inhaler (Last Dose: 06/08/2016 20:00); lenore grover Attachments: 05:10 [facility] Payment Agreement pm4 MTDD
--- NOTE | 2016-06-09 06:24 | EDDOCDS ---
Nurse's Notes [facility] Name: Tee Malhotra Age: 46 yrs Sex: Male : 1970 Arrival Date: 06/09/2016 Time: 03:54 Bed 5 Private MD: Diagnosis: Acute bronchitis;Nicotine dependence, cigarettes Presentation: 06/09 04:01 Presenting complaint: Patient states: he continues with URI symptoms cough and phlegm cz build up seen here for same 24 hrs ago and 2 days ago. Adult Sepsis Screening: The patient does not have new or worsening altered mentation. Patient's respiratory rate is less than 22. Systolic blood pressure is greater than 100. Patient has a qSOFA score of 0- Negative Sepsis Screen. Suicide/Homicide risk assessment- the patient denies having any suicidal and/or homicidal ideations and does not present with any other emotional, behavioral or mental health complaints. 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 Transition of care: patient was not received from another setting of care. 04:01 Acuity: SHEREE Level 3 cz 04:01 Method Of Arrival: Walkin/Carried/Asstd cz Triage Assessment: 04:04 General: Appears distressed, uncomfortable. Pain: Location: chest. HIV screening NA for cz this visit Offered previously. 06:21 Respiratory: Onset: The symptoms/episode began/occurred gradually. mv5 Historical: - Allergies: No known drug Allergies; - Home Meds: 1. albuterol inhaler pt states inhaler outdated by 9 months (Last dose: 06/08/2016 20:00) 2. Zithromax 250 mg Oral tab 3. prednisone 20 mg Oral tab once daily - PMHx: alcoholism (sober x17 years); back sprain (2000); Hypertension; tachycardia; - PSHx: Tonsillectomy; Appendectomy; - Social history: Smoking status: Patient uses tobacco products, current every day smoker. No barriers to communication noted, The patient speaks fluent Maltese, Speaks appropriately for age. - Family history: Not pertinent. - : The pt / caregiver states he / she is not on anticoagulants. Home medication list is obtained from the patient. - Exposure Risk Screening:: None identified. Screenin:52 Screening information is obtained from the patient. Fall risk: No risks identified. mv5 Assistance ADL's: requires no assistance with activities of daily living. Abuse/DV Screen: The patient / caregiver reports he/she is: not in a situation that causes fear, pain or injury. Nutritional screening: No deficits noted. Advance Directives: There is no active DNR order. home support is adequate. Assessment: 04:52 General: Appears in no apparent distress, Behavior is appropriate for age, cooperative. mv5 Pain: Denies pain. Neurological: Level of Consciousness is awake, alert, Oriented to person, place, time. Cardiovascular: Capillary refill < 3 seconds Heart tones S1 S2. Cardiovascular: No deficits noted. Respiratory: Airway is patent Respiratory effort is even, unlabored, Respiratory pattern is regular, symmetrical, cough worse when lying flat. Pt reports difficulty clearing sputum. GI: No deficits noted. Derm: Skin is pink, warm & dry. 04:52 Respiratory: Breath sounds are coarse inspiratory expiratory Breath sounds with wheezes mv5 expiratory bilaterally. 05:29 General: Appears in no apparent distress, Nebs given by RT, pt reports improvement of mv5 symptoms.. 06:20 Reassessment: Patient states symptoms have improved. mv5 Vital Signs: 04:04 BP 142 / 87; Pulse 117; Resp 16; Temp 98; Pulse Ox 95% ; Weight 113.4 kg; Height 6 ft. cz (182.88 cm); 04:04 Body Mass Index 33.91 (113.40 kg, 182.88 cm) Vitals: 04:04 Log In Time: June 09, 2016 at 03:54. cz ED Course: 03:55 Patient visited by Vivian Yee. gjb 03:55 Patient moved to Waiting b 03:58 Patient moved to Triage 1 cz 04:02 Triage Initiated cz 04:10 Patient moved to Pre RCE cz 04:43 Cathy Barajas, RN is Primary Nurse. cz 04:43 Patient moved to 5 cz 04:51 Gordon Michael DO is Attending Physician. cs11 04:51 Patient visited by Gordon Michael DO. cs11 04:51 Primary Nurse role handed off by Cathy Barajas, JAKOB mv5 04:51 Sushma Bertrand,JAKOB is Primary Nurse. mv5 04:52 The patient / caregiver is instructed regarding the plan of care and ED course. mv5 05:10 [facility] Payment Agreement was scanned into [employer] and attached to record. pm4 05:25 Inserted saline lock: 20 gauge in left antecubital area and blood collected. The mv5 patient tolerated the procedure well. 05:29 Patient visited by Sushma Bertrand RN. mv5 06:16 Discontinued intact, bleeding controlled, pressure dressing applied, No mv5 redness/swelling at site. No procedures done that require assistance. Administered Medications: 05:12 Drug: Albuterol-Ipratropium 1 neb [ipratropium-albuterol 0.5 mg-3 mg(2.5 mg base)/3 mL jh6 nebulization soln (1 neb)] Route: Nebulizer; 05:24 Drug: Dexamethasone 14 mg [dexamethasone 4 mg/mL injection solution] Route: IV; Rate: mv5 bolus; Site: left antecubital; 06:22 Follow up: Response: No Adverse Reaction mv5 05:31 Drug: Albuterol-Ipratropium 1 neb [ipratropium-albuterol 0.5 mg-3 mg(2.5 mg base)/3 mL jh6 nebulization soln (1 neb)] Route: Nebulizer; 05:58 Drug: Albuterol-Ipratropium 1 neb [ipratropium-albuterol 0.5 mg-3 mg(2.5 mg base)/3 mL jh6 nebulization soln (1 neb)] Route: Nebulizer; RT: 05:12 Respiratory: Airway is patent Respiratory effort is even, unlabored, Respiratory jh6 pattern is regular symmetrical, Breath sounds are coarse in left posterior upper lobe, right posterior upper lobe, left posterior lower lobe, right posterior middle lobe and right posterior lower lobe Breath sounds with crackles in left posterior lower lobe and right posterior middle lobe Breath sounds with wheezes in left posterior upper lobe, right posterior upper lobe, left posterior lower lobe, right posterior middle lobe and right posterior lower lobe at expiration. 05:12 Initial Med Neb Given as ordered Patient was instructed and evaluated on procedure jh6 Patient tolerated procedure well without adverse effect. 05:21 Respiratory: Airway is patent Respiratory effort is even, unlabored, Respiratory jh6 pattern is regular symmetrical, Breath sounds with crackles in left posterior upper lobe, right posterior upper lobe, left posterior lower lobe, right posterior middle lobe and right posterior lower lobe. 05:33 Subsequent Med Neb Given as ordered Patient was reinforced on procedure Patient jh6 tolerated procedure well without adverse effect. Respiratory: Airway is patent Respiratory effort is even, unlabored, Respiratory pattern is regular symmetrical, Breath sounds are coarse in left posterior upper lobe, right posterior upper lobe, left posterior lower lobe, right posterior middle lobe and right posterior lower lobe. 05:42 Respiratory: Airway is patent Respiratory effort is even, unlabored, Respiratory 6 pattern is regular symmetrical, Breath sounds are coarse in left posterior upper lobe, right posterior upper lobe, left posterior lower lobe, right posterior middle lobe and right posterior lower lobe Breath sounds with crackles in left posterior upper lobe, right posterior upper lobe, left posterior lower lobe, right posterior middle lobe and right posterior lower lobe. 05:58 Subsequent Med Neb Given as ordered Patient was reinforced on procedure Patient jenny6 tolerated procedure well without adverse effect. Respiratory: Airway is patent Respiratory effort is even, unlabored, Respiratory pattern is regular symmetrical, Breath sounds are coarse in left posterior upper lobe, right posterior upper lobe, left posterior lower lobe, right posterior middle lobe and right posterior lower lobe Breath sounds with crackles in left posterior upper lobe, right posterior upper lobe, left posterior lower lobe, right posterior middle lobe and right posterior lower lobe. Order Results: There are currently no results for this order. Outcome: 06:06 Discharge ordered by Provider. cs11 06:16 Discharge Assessment: Patient awake, alert and oriented x 3. No cognitive and/or mv5 functional deficits noted. Patient verbalized understanding of disposition instructions. patient administered narcotics - no. The following High Risk Discharge criteria are identified: None. Discharged to home. Condition: stable. Discharge instructions given to patient, Demonstrated understanding of Pt was receptive of discharge instructions/ teaching. No special radiology studies were completed. Property sent home with patient. 06:23 Patient left the ED. mv5 Signatures: Aron Pascual, JAKOB RN Leobardo Christianson jh6 Gordon Michael DO DO cs11 Vivian Yee Paul, Reg Reg pm4 Sushma Bertrand,JAKOB RN mv5 Corrections: (The following items were deleted from the chart) 04:09 04:04 Home Meds: albuterol inhaler (Last Dose: 06/08/2016 20:00); lenore grover MTDD
--- NOTE | 2016-06-11 07:23 | EDDOCDS ---
Physician Documentation [facility] Name: Tee Malhotra Age: 46 yrs Sex: Male : 1970 Arrival Date: 06/09/2016 Time: 03:54 Bed 5 Private MD: Disposition: 06/09/16 06:06 Discharged to Home/Self Care. Impression: Acute bronchitis, Nicotine dependence, cigarettes. - Condition is Stable. - Prescriptions for Home Nebulizer - Dx: (asthma). Duration: (chronic). ipratropium- albuterol 0.5 mg-3 mg(2.5 mg base)/3 mL Inhalation Solution for Nebulization - inhale 1 ampule by NEBULIZATION route 4 times per day As needed; 1 box. - Medication Reconciliation, Local Pharmacy Hours form. - Follow up: Private Physician; When: Call to arrange an appointment; Reason: Recheck today's complaints. - Problem is an ongoing problem. - Symptoms have improved. Historical: - Allergies: No known drug Allergies; - Home Meds: 1. albuterol inhaler pt states inhaler outdated by 9 months (Last dose: 06/08/2016 20:00) 2. Zithromax 250 mg Oral tab 3. prednisone 20 mg Oral tab once daily - PMHx: alcoholism (sober x17 years); back sprain (2000); Hypertension; tachycardia; - PSHx: Tonsillectomy; Appendectomy; - Social history: Smoking status: Patient uses tobacco products, current every day smoker. No barriers to communication noted, The patient speaks fluent Kyrgyz, Speaks appropriately for age. - Family history: Not pertinent. - : The pt / caregiver states he / she is not on anticoagulants. Home medication list is obtained from the patient. - Exposure Risk Screening:: None identified. Vital Signs: 06/09 04:04 BP 142 / 87; Pulse 117; Resp 16; Temp 98; Pulse Ox 95% ; Weight 113.4 kg / 250 lbs; cz Height 6 ft. (182.88 cm); 04:04 Body Mass Index 33.91 (113.40 kg, 182.88 cm) cz MDM: 04:58 Albuterol-Ipratropium 1 neb Nebulizer every 20 minutes x3 ordered. cs11 04:58 Call Respiratory ordered. cs11 04:58 IV Saline Lock ordered. cs11 04:58 Dexamethasone 14 mg IV at bolus once ordered. cs11 05:03 Call Respiratory complete. ml3 05:07 Financial registration complete. pm4 05:10 [facility] Payment Agreement was scanned into [employer] and attached to record. pm4 14:19 T-Sheet-- Draft Copy was scanned into [employer] and attached to record. gb Administered Medications: 05:12 Drug: Albuterol-Ipratropium 1 neb [ipratropium-albuterol 0.5 mg-3 mg(2.5 mg base)/3 mL jh6 nebulization soln (1 neb)] Route: Nebulizer; 05:24 Drug: Dexamethasone 14 mg [dexamethasone 4 mg/mL injection solution] Route: IV; Rate: mv5 bolus; Site: left antecubital; 06:22 Follow up: Response: No Adverse Reaction mv5 05:31 Drug: Albuterol-Ipratropium 1 neb [ipratropium-albuterol 0.5 mg-3 mg(2.5 mg base)/3 mL jh6 nebulization soln (1 neb)] Route: Nebulizer; 05:58 Drug: Albuterol-Ipratropium 1 neb [ipratropium-albuterol 0.5 mg-3 mg(2.5 mg base)/3 mL jh6 nebulization soln (1 neb)] Route: Nebulizer; Signatures: Aron Pascual RN RN cz Christine Marshall, Reg Reg gb Rita Segovia, Online Communications Specialist Unit ml3 Gordon Michael, DO cs11 Jose Luis Garcia, Reg Reg pm4 Sushma Bertrand RN RN mv5 Leobardo Masterson 6 The chart was reviewed and I authenticate all verbal orders and agree with the evaluation and treatment provided.Corrections: (The following items were deleted from the chart) 04:09 04:04 Home Meds: albuterol inhaler (Last Dose: 06/08/2016 20:00); lenore grover Attachments: 05:10 [facility] Payment Agreement pm4 14:19 T-Sheet-- Draft Copy gb Chart Complete MTDD
--- NOTE | 2016-06-11 07:23 | EDDOCDS ---
Physician Documentation [facility] Name: Tee Malhotra Age: 46 yrs Sex: Male : 1970 Arrival Date: 06/09/2016 Time: 03:54 Bed 5 Private MD: Disposition: 06/09/16 06:06 Discharged to Home/Self Care. Impression: Acute bronchitis, Nicotine dependence, cigarettes. - Condition is Stable. - Prescriptions for Home Nebulizer - Dx: (asthma). Duration: (chronic). ipratropium- albuterol 0.5 mg-3 mg(2.5 mg base)/3 mL Inhalation Solution for Nebulization - inhale 1 ampule by NEBULIZATION route 4 times per day As needed; 1 box. - Medication Reconciliation, Local Pharmacy Hours form. - Follow up: Private Physician; When: Call to arrange an appointment; Reason: Recheck today's complaints. - Problem is an ongoing problem. - Symptoms have improved. Historical: - Allergies: No known drug Allergies; - Home Meds: 1. albuterol inhaler pt states inhaler outdated by 9 months (Last dose: 06/08/2016 20:00) 2. Zithromax 250 mg Oral tab 3. prednisone 20 mg Oral tab once daily - PMHx: alcoholism (sober x17 years); back sprain (2000); Hypertension; tachycardia; - PSHx: Tonsillectomy; Appendectomy; - Social history: Smoking status: Patient uses tobacco products, current every day smoker. No barriers to communication noted, The patient speaks fluent Lithuanian, Speaks appropriately for age. - Family history: Not pertinent. - : The pt / caregiver states he / she is not on anticoagulants. Home medication list is obtained from the patient. - Exposure Risk Screening:: None identified. Vital Signs: 06/09 04:04 BP 142 / 87; Pulse 117; Resp 16; Temp 98; Pulse Ox 95% ; Weight 113.4 kg / 250 lbs; cz Height 6 ft. (182.88 cm); 04:04 Body Mass Index 33.91 (113.40 kg, 182.88 cm) cz MDM: 04:58 Albuterol-Ipratropium 1 neb Nebulizer every 20 minutes x3 ordered. cs11 04:58 Call Respiratory ordered. cs11 04:58 IV Saline Lock ordered. cs11 04:58 Dexamethasone 14 mg IV at bolus once ordered. cs11 05:03 Call Respiratory complete. ml3 05:07 Financial registration complete. pm4 05:10 [facility] Payment Agreement was scanned into [employer] and attached to record. pm4 14:19 T-Sheet-- Draft Copy was scanned into [employer] and attached to record. gb Administered Medications: 05:12 Drug: Albuterol-Ipratropium 1 neb [ipratropium-albuterol 0.5 mg-3 mg(2.5 mg base)/3 mL jh6 nebulization soln (1 neb)] Route: Nebulizer; 05:24 Drug: Dexamethasone 14 mg [dexamethasone 4 mg/mL injection solution] Route: IV; Rate: mv5 bolus; Site: left antecubital; 06:22 Follow up: Response: No Adverse Reaction mv5 05:31 Drug: Albuterol-Ipratropium 1 neb [ipratropium-albuterol 0.5 mg-3 mg(2.5 mg base)/3 mL jh6 nebulization soln (1 neb)] Route: Nebulizer; 05:58 Drug: Albuterol-Ipratropium 1 neb [ipratropium-albuterol 0.5 mg-3 mg(2.5 mg base)/3 mL jh6 nebulization soln (1 neb)] Route: Nebulizer; Signatures: Aron Pascual RN RN cz Christine Marshall, Reg Reg gb Rita Segovia, [place] Inspector Repairer Unit ml3 Gordon Michael, DO cs11 Jose Luis Garcia, Reg Reg pm4 Sushma Bertrand RN RN mv5 Leobardo Masterson 6 The chart was reviewed and I authenticate all verbal orders and agree with the evaluation and treatment provided.Corrections: (The following items were deleted from the chart) 04:09 04:04 Home Meds: albuterol inhaler (Last Dose: 06/08/2016 20:00); lenore grover Attachments: 05:10 [facility] Payment Agreement pm4 14:19 T-Sheet-- Draft Copy gb Chart Complete MTDD
--- NOTE | 2016-06-11 07:23 | EDDOCDS ---
Nurse's Notes [facility] Name: Tee Malhotra Age: 46 yrs Sex: Male : 1970 Arrival Date: 06/09/2016 Time: 03:54 Bed 5 Private MD: Diagnosis: Acute bronchitis;Nicotine dependence, cigarettes Presentation: 06/09 04:01 Presenting complaint: Patient states: he continues with URI symptoms cough and phlegm cz build up seen here for same 24 hrs ago and 2 days ago. Adult Sepsis Screening: The patient does not have new or worsening altered mentation. Patient's respiratory rate is less than 22. Systolic blood pressure is greater than 100. Patient has a qSOFA score of 0- Negative Sepsis Screen. Suicide/Homicide risk assessment- the patient denies having any suicidal and/or homicidal ideations and does not present with any other emotional, behavioral or mental health complaints. Status: Patient is not a protective services social worker or dependent. Transition of care: patient was not received from another setting of care. 04:01 Acuity: SHEREE Level 3 cz 04:01 Method Of Arrival: Walkin/Carried/Asstd cz Triage Assessment: 04:04 General: Appears distressed, uncomfortable. Pain: Location: chest. HIV screening NA for cz this visit Offered previously. 06:21 Respiratory: Onset: The symptoms/episode began/occurred gradually. mv5 Historical: - Allergies: No known drug Allergies; - Home Meds: 1. albuterol inhaler pt states inhaler outdated by 9 months (Last dose: 06/08/2016 20:00) 2. Zithromax 250 mg Oral tab 3. prednisone 20 mg Oral tab once daily - PMHx: alcoholism (sober x17 years); back sprain (2000); Hypertension; tachycardia; - PSHx: Tonsillectomy; Appendectomy; - Social history: Smoking status: Patient uses tobacco products, current every day smoker. No barriers to communication noted, The patient speaks fluent Sinhala, Speaks appropriately for age. - Family history: Not pertinent. - : The pt / caregiver states he / she is not on anticoagulants. Home medication list is obtained from the patient. - Exposure Risk Screening:: None identified. Screenin:52 Screening information is obtained from the patient. Fall risk: No risks identified. mv5 Assistance ADL's: requires no assistance with activities of daily living. Abuse/DV Screen: The patient / caregiver reports he/she is: not in a situation that causes fear, pain or injury. Nutritional screening: No deficits noted. Advance Directives: There is no active DNR order. home support is adequate. Assessment: 04:52 General: Appears in no apparent distress, Behavior is appropriate for age, cooperative. mv5 Pain: Denies pain. Neurological: Level of Consciousness is awake, alert, Oriented to person, place, time. Cardiovascular: Capillary refill < 3 seconds Heart tones S1 S2. Cardiovascular: No deficits noted. Respiratory: Airway is patent Respiratory effort is even, unlabored, Respiratory pattern is regular, symmetrical, cough worse when lying flat. Pt reports difficulty clearing sputum. GI: No deficits noted. Derm: Skin is pink, warm & dry. 04:52 Respiratory: Breath sounds are coarse inspiratory expiratory Breath sounds with wheezes mv5 expiratory bilaterally. 05:29 General: Appears in no apparent distress, Nebs given by RT, pt reports improvement of mv5 symptoms.. 06:20 Reassessment: Patient states symptoms have improved. mv5 Vital Signs: 04:04 BP 142 / 87; Pulse 117; Resp 16; Temp 98; Pulse Ox 95% ; Weight 113.4 kg; Height 6 ft. cz (182.88 cm); 04:04 Body Mass Index 33.91 (113.40 kg, 182.88 cm) Vitals: 04:04 Log In Time: June 09, 2016 at 03:54. cz ED Course: 03:55 Patient visited by Vivian Yee. gjb 03:55 Patient moved to Waiting b 03:58 Patient moved to Triage 1 cz 04:02 Triage Initiated cz 04:10 Patient moved to Pre RCE cz 04:43 Cathy Barajas, RN is Primary Nurse. cz 04:43 Patient moved to 5 cz 04:51 Gordon Michael DO is Attending Physician. cs11 04:51 Patient visited by Gordon Michael DO. cs11 04:51 Primary Nurse role handed off by Cathy Barajas, JAKOB mv5 04:51 Sushma Bertrand,JAKOB is Primary Nurse. mv5 04:52 The patient / caregiver is instructed regarding the plan of care and ED course. mv5 05:10 [facility] Payment Agreement was scanned into [employer] and attached to record. pm4 05:25 Inserted saline lock: 20 gauge in left antecubital area and blood collected. The mv5 patient tolerated the procedure well. 05:29 Patient visited by Sushma Bertrand RN. mv5 06:16 Discontinued intact, bleeding controlled, pressure dressing applied, No mv5 redness/swelling at site. No procedures done that require assistance. 14:19 T-Sheet-- Draft Copy was scanned into [employer] and attached to record. gb Administered Medications: 05:12 Drug: Albuterol-Ipratropium 1 neb [ipratropium-albuterol 0.5 mg-3 mg(2.5 mg base)/3 mL jh6 nebulization soln (1 neb)] Route: Nebulizer; 05:24 Drug: Dexamethasone 14 mg [dexamethasone 4 mg/mL injection solution] Route: IV; Rate: mv5 bolus; Site: left antecubital; 06:22 Follow up: Response: No Adverse Reaction mv5 05:31 Drug: Albuterol-Ipratropium 1 neb [ipratropium-albuterol 0.5 mg-3 mg(2.5 mg base)/3 mL jh6 nebulization soln (1 neb)] Route: Nebulizer; 05:58 Drug: Albuterol-Ipratropium 1 neb [ipratropium-albuterol 0.5 mg-3 mg(2.5 mg base)/3 mL jh6 nebulization soln (1 neb)] Route: Nebulizer; RT: 05:12 Respiratory: Airway is patent Respiratory effort is even, unlabored, Respiratory jh6 pattern is regular symmetrical, Breath sounds are coarse in left posterior upper lobe, right posterior upper lobe, left posterior lower lobe, right posterior middle lobe and right posterior lower lobe Breath sounds with crackles in left posterior lower lobe and right posterior middle lobe Breath sounds with wheezes in left posterior upper lobe, right posterior upper lobe, left posterior lower lobe, right posterior middle lobe and right posterior lower lobe at expiration. 05:12 Initial Med Neb Given as ordered Patient was instructed and evaluated on procedure jh6 Patient tolerated procedure well without adverse effect. 05:21 Respiratory: Airway is patent Respiratory effort is even, unlabored, Respiratory jh6 pattern is regular symmetrical, Breath sounds with crackles in left posterior upper lobe, right posterior upper lobe, left posterior lower lobe, right posterior middle lobe and right posterior lower lobe. 05:33 Subsequent Med Neb Given as ordered Patient was reinforced on procedure Patient jh6 tolerated procedure well without adverse effect. Respiratory: Airway is patent Respiratory effort is even, unlabored, Respiratory pattern is regular symmetrical, Breath sounds are coarse in left posterior upper lobe, right posterior upper lobe, left posterior lower lobe, right posterior middle lobe and right posterior lower lobe. 05:42 Respiratory: Airway is patent Respiratory effort is even, unlabored, Respiratory 6 pattern is regular symmetrical, Breath sounds are coarse in left posterior upper lobe, right posterior upper lobe, left posterior lower lobe, right posterior middle lobe and right posterior lower lobe Breath sounds with crackles in left posterior upper lobe, right posterior upper lobe, left posterior lower lobe, right posterior middle lobe and right posterior lower lobe. 05:58 Subsequent Med Neb Given as ordered Patient was reinforced on procedure Patient jh6 tolerated procedure well without adverse effect. Respiratory: Airway is patent Respiratory effort is even, unlabored, Respiratory pattern is regular symmetrical, Breath sounds are coarse in left posterior upper lobe, right posterior upper lobe, left posterior lower lobe, right posterior middle lobe and right posterior lower lobe Breath sounds with crackles in left posterior upper lobe, right posterior upper lobe, left posterior lower lobe, right posterior middle lobe and right posterior lower lobe. Order Results: There are currently no results for this order. Outcome: 06:06 Discharge ordered by Provider. cs11 06:16 Discharge Assessment: Patient awake, alert and oriented x 3. No cognitive and/or mv5 functional deficits noted. Patient verbalized understanding of disposition instructions. patient administered narcotics - no. The following High Risk Discharge criteria are identified: None. Discharged to home. Condition: stable. Discharge instructions given to patient, Demonstrated understanding of Pt was receptive of discharge instructions/ teaching. No special radiology studies were completed. Property sent home with patient. 06:23 Patient left the ED. mv5 Signatures: Aron Pascual, JAKOB RN cz Christine Marshall, Reg Reg gb Leobardo Masterson jh6 Gordon Michael DO DO cs11 Vivian Yee Paul, Reg Reg pm4 Sushma Bertrand RN RN mv5 Corrections: (The following items were deleted from the chart) 04:09 04:04 Home Meds: albuterol inhaler (Last Dose: 06/08/2016 20:00); cz cz Chart Complete MTDD
== END 2016-06-09 06:23 | disposition home or self-care (01) ==
LOC: M ED 03:54
DX: J20.9 Acute bronchitis, unspecified (principal); J45.909 Unspecified asthma, uncomplicated; I10 Essential (primary) hypertension; F17.200 Nicotine dependence, unspecified, uncomplicated; Z79.2 Long term (current) use of antibiotics; Z79.52 Long term (current) use of systemic steroids
CPT/HCPCS: 36415; 94640; 96374; 99284; J1100

== ENCOUNTER 2016-09-09 03:57 | Emergency (ER) | payer MEDICAID, OTHER, SELFPAY ==
[~2016-09-09] VITALS: Ht 182.9 cm; Wt 113.4 kg
[2016-09-09] MEDS ORDERED: TUMS750C20 PO (04:11)
[2016-09-09 05:02] LABS: BASO % 0.4 % (0.0-1.0); EOS # 0.1 K/mm3 (0.0-0.50); EOS % 1.6 % (0.0-3.0); LARGE UNSTAINED CELL # 0.2 K/mm3 (0.0-0.4); LARGE UNSTAINED CELL % 2.5 % (0.0-4.0); LYMPH # 2.5 K/mm3 (1.5-4.5); LYMPH % 30.3 % (24.0-44.0); MEAN CORPUSCULAR HEMOGLOBIN 33.4 pg (27.0-33.0); MEAN CORPUSCULAR HGB CONC 34.2 g/dl (32.0-36.5); MEAN CORPUSCULAR VOLUME 97.7 fl (80.0-96.0); MONO # 0.4 K/mm3 (0.0-0.8); MONO % 5.3 % (0.0-5.0); NEUTROPHILS # 4.9 K/mm3 (1.8-7.7); PLATELET COUNT, AUTOMATED 168 k/mm3 (150-450); RED CELL DISTRIBUTION WIDTH 12.5 % (11.5-14.5); WHITE BLOOD COUNT 8.2 K/mm3 (4.0-10.0)
--- NOTE | 2016-09-09 05:30 | REPUSA ---
CLINICAL HISTORY: RUQ pain. TECHNIQUE: Realtime sonographic images were obtained in multiple projections. COMMENTS: The visualized liver is of uniform echo texture without evidence of mass or defect. There is no intra or extrahepatic biliary ductal dilatation. The common bile duct measures 3.6 mm. The gallbladder is physiologically distended without evidence of calculi. Normal gallbladder wall thickness measuring 2. 3 mm. The gallbladder wall is not thickened and there is no pericholecystic fluid. The visualized portions of the pancreas are unremarkable. Right kidney measures 12.4x7.1x6.3 cm. IMPRESSION: No evidence of cholelithiasis or cholecystitis. Thank you for your kind referral of this patient.
[2016-09-09 05:52] LABS: ALBUMIN 3.8 GM/DL (3.2-5.2); ALKALINE PHOSPHATASE 77 U/L (45-117); ALT/SGPT 92 U/L (12-78); ANION GAP 5 MEQ/L (8-16); AST/SGOT 24 U/L (15-37); BILIRUBIN,DIRECT < 0.1 MG/DL (0.0-0.2); BILIRUBIN,TOTAL 0.3 MG/DL (0.2-1.0); BLOOD UREA NITROGEN 25 MG/DL (7-18); CARBON DIOXIDE LEVEL 28 MEQ/L (21-32); CHLORIDE LEVEL 104 MEQ/L (98-107); GLOMERULAR FILTRATION RATE > 60.0 (>60); GLUCOSE, FASTING 97 MG/DL (70-105); POTASSIUM SERUM 4.2 MEQ/L (3.5-5.1); SODIUM LEVEL 137 MEQ/L (136-145); TOTAL PROTEIN 7.6 GM/DL (6.4-8.2)
[2016-09-09] MEDS ORDERED: OMEPRAZOLE 20 MG CAP PO ONE (06:00)
[2016-09-09] MEDS ORDERED: OMEP40CA2 PO (06:00)
[2016-09-09 06:04] VITALS: BP 141/94
== END 2016-09-09 06:32 | disposition home or self-care (01) ==
LOC: M ED 04:44
DX: R10.13 Epigastric pain (principal); F17.210 Nicotine dependence, cigarettes, uncomplicated

== ENCOUNTER 2016-09-17 16:06 | Emergency (ER) | payer OTHER, SELFPAY ==
[~2016-09-17] VITALS: Ht 182.9 cm; Wt 113.4 kg
[~2016-09-17 16:06] MED LIST changes: +OMEP40CA2 PO; +TUMS750C20 PO
[2016-09-17] MEDS ORDERED: KEFL500C7 PO (17:36)
[2016-09-17 17:53] VITALS: BP 148/83
== END 2016-09-17 17:54 | disposition home or self-care (01) ==
LOC: M ED 17:01
DX: L72.3 Sebaceous cyst (principal); L03.113 Cellulitis of right upper limb; K21.9 Gastro-esophageal reflux disease without esophagitis; F17.200 Nicotine dependence, unspecified, uncomplicated; Z79.899 Other long term (current) drug therapy

== ENCOUNTER 2016-09-21 02:41 | Emergency (ER) | payer OTHER ==
[~2016-09-21] VITALS: Ht 182.9 cm; Wt 113.4 kg
[~2016-09-21 02:41] MED LIST changes: +KEFL500C7 PO
[2016-09-21 06:15] VITALS: BP 147/88
[2016-09-21] MEDS ORDERED: BACT800T5 PO (07:03)
== END 2016-09-21 07:11 | disposition home or self-care (01) ==
LOC: M ED 05:34
DX: L23.1 Allergic contact dermatitis due to adhesives (principal); K21.9 Gastro-esophageal reflux disease without esophagitis; F17.210 Nicotine dependence, cigarettes, uncomplicated; Z79.899 Other long term (current) drug therapy

== ENCOUNTER 2016-09-30 01:55 | Emergency (ER) | payer OTHER ==
[~2016-09-30] VITALS: Ht 182.9 cm; Wt 113.4 kg
[~2016-09-30 01:55] MED LIST changes: +BACT800T5 PO
[2016-09-30 03:40] VITALS: BP 152/68
== END 2016-09-30 03:40 | disposition home or self-care (01) ==
LOC: M ED 03:18
DX: F41.9 Anxiety disorder, unspecified (principal); K21.9 Gastro-esophageal reflux disease without esophagitis; F17.200 Nicotine dependence, unspecified, uncomplicated; Z79.899 Other long term (current) drug therapy; Z79.2 Long term (current) use of antibiotics

== ENCOUNTER 2016-12-21 04:23 | Emergency (ER) | payer OTHER ==
[~2016-12-21] VITALS: Ht 182.9 cm; Wt 113.6 kg
[~2016-12-21 04:23] MED LIST changes: -AUGM875T27 PO; +AUGM875T28 PO; -CELE-19 PO; +CELE1CAP4 PO; +KEFL500C17 PO; -KEFL500C7 PO
[2016-12-21] MEDS ORDERED: ceFAZolin SOD 1 GM in D5W MINI-BAG PLUS 50 ML IV ONE (06:15)
[2016-12-21] MEDS ORDERED: fentaNYL 100 MCG/2 ML INJECTION (J3010) IV ONE (07:15)
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
[2016-12-21 08:50] VITALS: BP 174/81
[2016-12-22] MEDS ORDERED: NORC1TAB4 PO (07:10)
[2016-12-22] MEDS ORDERED: CEPH500C (07:10)
[2016-12-22] MEDS ORDERED: TYLE325C PO (07:11)
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
== END 2016-12-21 09:01 | disposition left against medical advice (07) ==
LOC: M ED 04:23 → EDBD 04:23 → M ED 09:01
DX: S62.312A Displaced fracture of base of third metacarpal bone, right hand, initial encounter for closed fracture (principal); S62.314A Displaced fracture of base of fourth metacarpal bone, right hand, initial encounter for closed fracture; S62.316A Displaced fracture of base of fifth metacarpal bone, right hand, initial encounter for closed fracture; S62.644A Nondisplaced fracture of proximal phalanx of right ring finger, initial encounter for closed fracture; S62.656B Nondisplaced fracture of middle phalanx of right little finger, initial encounter for open fracture; S62.666A Nondisplaced fracture of distal phalanx of right little finger, initial encounter for closed fracture; V28.4XXA Motorcycle driver injured in noncollision transport accident in traffic accident, initial encounter; Y92.410 Unspecified street and highway as the place of occurrence of the external cause; Z79.899 Other long term (current) drug therapy; F17.210 Nicotine dependence, cigarettes, uncomplicated; F10.21 Alcohol dependence, in remission
CPT/HCPCS: 71020; 73130; 73560; 96365; 96366; 99284; J0690; J3010

== ENCOUNTER 2016-12-22 06:57 | Emergency (ER) | payer OTHER ==
[~2016-12-22] VITALS: Ht 182.9 cm; Wt 113.6 kg
[2016-12-22 07:05] VITALS: BP 155/91
[2016-12-22] MEDS ORDERED: NORC1TAB4 PO (07:10)
[2016-12-22] MEDS ORDERED: CEPH500C (07:10)
[2016-12-22] MEDS ORDERED: TYLE325C PO (07:11)
[2016-12-22] MEDS ORDERED: NS 500 ML IV ONE ×2 (08:00→09:30)
[2016-12-22 08:51] LABS: ALBUMIN 3.8 GM/DL (3.2-5.2); ALBUMIN/GLOBULIN RATIO 1.31 (1.00-1.93); ALKALINE PHOSPHATASE 60 U/L (45-117); ALT/SGPT 56 U/L (12-78); ANION GAP 10 MEQ/L (8-16); AST/SGOT 25 U/L (15-37); BILIRUBIN,DIRECT 0.1 MG/DL (0.0-0.2); BILIRUBIN,TOTAL 0.6 MG/DL (0.2-1.0); BLOOD UREA NITROGEN 18 MG/DL (7-18); CALCIUM LEVEL 8.2 MG/DL (8.5-10.1); CARBON DIOXIDE LEVEL 24 MEQ/L (21-32); CHLORIDE LEVEL 106 MEQ/L (98-107); CREATININE FOR GFR 0.78 MG/DL (0.70-1.30); GLOMERULAR FILTRATION RATE > 60.0 (>60); GLUCOSE, FASTING 105 MG/DL (70-105); POTASSIUM SERUM 3.5 MEQ/L (3.5-5.1); SODIUM LEVEL 140 MEQ/L (136-145); TOTAL PROTEIN 6.7 GM/DL (6.4-8.2)
[2016-12-22] MEDS ORDERED: MORPHINE 4 MG/ML 1ML SYRINGE IV ONE (09:00)
[2016-12-22] MEDS ORDERED: ISOVUE-370 76% 100ML VIAL (Q9967) As Ordered ONE (09:05)
[2016-12-22 09:19] LABS: BASO % 0.3 % (0.0-1.0); EOS # 0.1 K/mm3 (0.0-0.50); EOS % 1.4 % (0.0-3.0); LARGE UNSTAINED CELL # 0.1 K/mm3 (0.0-0.4); LARGE UNSTAINED CELL % 1.5 % (0.0-4.0); LYMPH # 2.5 K/mm3 (1.5-4.5); LYMPH % 27.7 % (24.0-44.0); MEAN CORPUSCULAR HEMOGLOBIN 32.4 pg (27.0-33.0); MEAN CORPUSCULAR HGB CONC 34.8 g/dl (32.0-36.5); MEAN CORPUSCULAR VOLUME 93.3 fl (80.0-96.0); MONO # 0.6 K/mm3 (0.0-0.8); MONO % 6.6 % (0.0-5.0); NEUTROPHILS # 5.5 K/mm3 (1.8-7.7); NEUTROPHILS % 62.5 % (36.0-66.0); RED CELL DISTRIBUTION WIDTH 12.3 % (11.5-14.5); WHITE BLOOD COUNT 8.8 K/mm3 (4.0-10.0)
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
== END 2016-12-22 11:09 | disposition home or self-care (01) ==
LOC: M ED 06:57
DX: M62.82 Rhabdomyolysis (principal); N28.1 Cyst of kidney, acquired; F17.200 Nicotine dependence, unspecified, uncomplicated; Z79.899 Other long term (current) drug therapy; Z79.2 Long term (current) use of antibiotics
CPT/HCPCS: 71260; 74177; 80048; 80076; 81001; 82550; 82553; 83690; 85025; 96374; 99283; Q9967

== ENCOUNTER 2016-12-28 14:52 | Emergency (ER) | payer OTHER ==
[~2016-12-28] VITALS: Ht 182.9 cm; Wt 113.6 kg
[2016-12-28 14:52] VITALS: BP 157/98
[~2016-12-28 14:52] MED LIST changes: +CEPH500C; +NORC1TAB4 PO; +TYLE325C PO
[2016-12-28] MEDS ORDERED: HYDR-3713 PO (14:59)
== END 2016-12-28 17:03 | disposition left against medical advice (07) ==
LOC: M ED 14:52
DX: M96.89 Other intraoperative and postprocedural complications and disorders of the musculoskeletal system (principal); G89.18 Other acute postprocedural pain; F17.210 Nicotine dependence, cigarettes, uncomplicated; Z79.891 Long term (current) use of opiate analgesic

== ENCOUNTER 2017-04-24 02:33 | Emergency (ER) | payer OTHER ==
[~2017-04-24] VITALS: Ht 182.9 cm; Wt 113.6 kg
[~2017-04-24 02:33] MED LIST changes: +HYDR-3713 PO
[2017-04-24 02:35] VITALS: BP 161/93
== END 2017-04-24 04:44 | disposition left against medical advice (07) ==
LOC: M ED 02:33
DX: Z53.21 Procedure and treatment not carried out due to patient leaving prior to being seen by health care provider (principal)

== ENCOUNTER 2017-04-25 03:44 | Emergency (ER) | payer OTHER ==
[~2017-04-25] VITALS: Ht 182.9 cm; Wt 113.6 kg
[2017-04-25 03:45] VITALS: BP 162/94
== END 2017-04-25 05:49 | disposition left against medical advice (07) ==
LOC: M ED 03:44
DX: Z53.21 Procedure and treatment not carried out due to patient leaving prior to being seen by health care provider (principal)

== ENCOUNTER 2017-04-28 15:32 | Emergency (ER) | payer OTHER ==
[~2017-04-28] VITALS: Ht 182.9 cm; Wt 113.6 kg
[2017-04-28 15:33] VITALS: BP 159/85
[2017-04-28] MEDS ORDERED: MIRA3350 PO (17:15)
[2017-04-28] MEDS ORDERED: MAGNESIUM CITRATE 300 ML BTL PO ONE (17:15)
[2017-04-28] MEDS ORDERED: COLA100C5 PO (17:15)
== END 2017-04-28 17:25 | disposition home or self-care (01) ==
LOC: M ED 15:32
DX: K59.00 Constipation, unspecified (principal); F17.210 Nicotine dependence, cigarettes, uncomplicated

== ENCOUNTER 2017-05-01 03:03 | Emergency (ER) | payer OTHER ==
[2017-05-01] MEDS: LACTULOSE 20 GM/30 ML SYRUP UD PO (03:52)
== END 2017-05-01 04:00 | disposition home or self-care (01) ==
LOC: M ED 03:03
DX: K59.00 Constipation, unspecified (principal); E63.9 Nutritional deficiency, unspecified; F17.210 Nicotine dependence, cigarettes, uncomplicated; Z79.899 Other long term (current) drug therapy
CPT/HCPCS: 99283

== ENCOUNTER 2017-06-11 03:37 | Emergency (ER) | payer SELFPAY, OTHER | END 2017-06-11 05:32 | disposition left against medical advice (07) | LOC: M ED 03:37 | DX: Z53.21 Procedure and treatment not carried out due to patient leaving prior to being seen by health care provider (principal) ==

== ENCOUNTER → 2017-06-16 | Outpatient (REF) | payer OTHER | LOC: M SFHCPLAZ 09:16 | DX: Z13.220 Encounter for screening for lipoid disorders (principal); Z13.1 Encounter for screening for diabetes mellitus ==

== ENCOUNTER → 2017-06-23 | Outpatient (REF) | payer OTHER | LOC: M SFHCPLAZ 08:35 | DX: Z13.220 Encounter for screening for lipoid disorders (principal); Z13.1 Encounter for screening for diabetes mellitus ==

== ENCOUNTER → 2017-07-19 | Outpatient (CLI) | payer OTHER ==
[2017-07-19 17:39] LABS: CHOLESTEROL LEVEL 185 MG/DL (<200); CHOLESTEROL RISK RATIO 4.868 (<5); HDL CHOLESTEROL 38 MG/DL (>40); LDL CHOLESTEROL 122.8 MG/DL (<100); NON-HDL-C 147 MG/DL; TRIGLYCERIDES LEVEL 121 MG/DL (<150)
[2017-07-19 18:23] LABS: ESTIMATED AVERAGE GLUCOSE 108 MG/DL (60-110); HEMOGLOBIN A1c 5.4 %
[2017-07-21 14:58] LABS: ANION GAP 7 MEQ/L (8-16); BLOOD UREA NITROGEN 19 MG/DL (7-18); CALCIUM LEVEL 9.4 MG/DL (8.5-10.1); CARBON DIOXIDE LEVEL 27 MEQ/L (21-32); CHLORIDE LEVEL 105 MEQ/L (98-107); CREATININE FOR GFR 0.93 MG/DL (0.70-1.30); GLOMERULAR FILTRATION RATE > 60.0 (>60); GLUCOSE, FASTING 90 MG/DL (70-100); POTASSIUM SERUM 4.8 MEQ/L (3.5-5.1); SODIUM LEVEL 139 MEQ/L (136-145)
== END ==
LOC: M WUC 16:02
DX: Z01.818 Encounter for other preprocedural examination (principal); Z13.220 Encounter for screening for lipoid disorders; Z13.1 Encounter for screening for diabetes mellitus
CPT/HCPCS: 83036

== ENCOUNTER → 2017-09-22 | Outpatient (CLI) | payer OTHER | LOC: M WUC 15:36 | DX: M25.541 Pain in joints of right hand (principal) | CPT/HCPCS: 73130 ==

== ENCOUNTER → 2017-09-30 | Outpatient (REF) | payer OTHER | LOC: M SFHCPLAZ 15:48 | DX: L82.1 Other seborrheic keratosis (principal) | CPT/HCPCS: 88305 ==

== ENCOUNTER → 2017-10-14 | Outpatient (CLI) | payer OTHER | LOC: M WUC 15:43 | DX: M79.644 Pain in right finger(s) (principal); M79.641 Pain in right hand | CPT/HCPCS: 73130 ==

== ENCOUNTER 2017-10-21 16:39 | Emergency (ER) | payer OTHER ==
[2017-10-21 19:11] LABS: BASO % 0.4 % (0.0-1.0); EOS # 0.1 10^3/uL (0.0-0.50); EOS % 0.9 % (0.0-3.0); HEMATOCRIT 45.2 % (42.0-52.0); HEMOGLOBIN 15.7 g/dl (13.5-17.5); IMMATURE GRANULOCYTE % 0.2 % (0-3.0); LYMPH # 2.4 10^3/uL (1.5-4.5); LYMPH % 26.6 % (24.0-44.0); MEAN CORPUSCULAR HEMOGLOBIN 31.7 pg (27.0-33.0); MEAN CORPUSCULAR HGB CONC 34.7 g/dl (32.0-36.5); MEAN CORPUSCULAR VOLUME 91.3 fl (80.0-96.0); MONO # 0.6 10^3/uL (0.0-0.8); MONO % 6.8 % (0.0-5.0); NEUTROPHILS # 5.8 10^3/uL (1.8-7.7); NEUTROPHILS % 65.1 % (36.0-66.0); PLATELET COUNT, AUTOMATED 169 10^3/uL (150-450); RED BLOOD COUNT 4.95 10^6/uL (4.30-6.10); RED CELL DISTRIBUTION WIDTH 12.9 % (11.5-14.5); WHITE BLOOD COUNT 8.9 10^3/uL (4.0-10.0)
[2017-10-21 19:31] LABS: ALBUMIN/GLOBULIN RATIO 1.14 (1.00-1.93); ALKALINE PHOSPHATASE 72 U/L (45-117); ALT/SGPT 45 U/L (12-78); ANION GAP 7 MEQ/L (8-16); AST/SGOT 13 U/L (7-37); BILIRUBIN,DIRECT < 0.1 MG/DL (0.0-0.2); BILIRUBIN,TOTAL 0.4 MG/DL (0.2-1.0); BLOOD UREA NITROGEN 18 MG/DL (7-18); C REACTIVE PROTEIN QUANTITATIV 0.54 MG/DL (0.00-0.30); CALCIUM LEVEL 8.9 MG/DL (8.5-10.1); CARBON DIOXIDE LEVEL 26 MEQ/L (21-32); CHLORIDE LEVEL 107 MEQ/L (98-107); CREATININE FOR GFR 0.82 MG/DL (0.70-1.30); GLOMERULAR FILTRATION RATE > 60.0 (>60); GLUCOSE, FASTING 86 MG/DL (70-100); SODIUM LEVEL 140 MEQ/L (136-145); TOTAL PROTEIN 7.5 GM/DL (6.4-8.2)
[2017-10-21 19:34] LABS: LACTIC ACID SEPSIS PROTOCOL 0.7 MMOL/L (0.4-2.0)
[2017-10-21 19:35] LABS: ERYTHROCYTE SEDIMENTATION RATE 4 mm/hr (0-15)
[2017-10-21] MEDS: cefTRIAXone SOD 2 GM in D5W MINI-BAG PLUS 50 ML IV (22:49)
== END 2017-10-21 23:55 | disposition home or self-care (01) ==
LOC: M ED 16:39
DX: M86.141 Other acute osteomyelitis, right hand (principal); T84.210A Breakdown (mechanical) of internal fixation device of bones of hand and fingers, initial encounter; Y92.9 Unspecified place or not applicable; Y93.9 Activity, unspecified; K21.9 Gastro-esophageal reflux disease without esophagitis; Z72.0 Tobacco use; Z79.899 Other long term (current) drug therapy
CPT/HCPCS: J0696

== ENCOUNTER 2017-11-11 15:50 | Emergency (ER) | payer OTHER | END 2017-11-11 18:35 | disposition home or self-care (01) | LOC: M ED 15:50 | DX: S05.8X1A Other injuries of right eye and orbit, initial encounter (principal); W22.8XXA Striking against or struck by other objects, initial encounter; Y92.89 Other specified places as the place of occurrence of the external cause; K21.9 Gastro-esophageal reflux disease without esophagitis; F17.210 Nicotine dependence, cigarettes, uncomplicated; Z79.899 Other long term (current) drug therapy | CPT/HCPCS: 99283 ==

== ENCOUNTER 2017-12-08 01:44 | Emergency (ER) | payer OTHER ==
[2017-12-08] MEDS: methylPREDNISolone INJ 125 MG/2 ML VIAL (J2930) IM (04:21)
== END 2017-12-08 04:30 | disposition home or self-care (01) ==
LOC: M ED 01:44
DX: T88.1XXA Other complications following immunization, not elsewhere classified, initial encounter (principal); Y92.9 Unspecified place or not applicable; Y93.9 Activity, unspecified; I10 Essential (primary) hypertension; Z72.0 Tobacco use; Z79.899 Other long term (current) drug therapy
CPT/HCPCS: J2930

== ENCOUNTER 2017-12-09 01:16 | Emergency (ER) | payer OTHER | END 2017-12-09 05:03 | disposition left against medical advice (07) | LOC: M ED 01:16 | DX: L98.9 Disorder of the skin and subcutaneous tissue, unspecified (principal); Z53.21 Procedure and treatment not carried out due to patient leaving prior to being seen by health care provider ==

== ENCOUNTER → 2017-12-09 | Outpatient (REF) | payer OTHER ==
[2017-12-09 15:36] LABS: BASO % 0.4 % (0.0-1.0); EOS # 0.1 10^3/uL (0.0-0.50); EOS % 1.1 % (0.0-3.0); HEMATOCRIT 46.1 % (42.0-52.0); HEMOGLOBIN 15.9 g/dl (13.5-17.5); IMMATURE GRANULOCYTE % 0.4 % (0-3.0); LYMPH # 3.3 10^3/uL (1.5-4.5); LYMPH % 31.8 % (24.0-44.0); MEAN CORPUSCULAR HEMOGLOBIN 32.4 pg (27.0-33.0); MEAN CORPUSCULAR HGB CONC 34.5 g/dl (32.0-36.5); MEAN CORPUSCULAR VOLUME 93.9 fl (80.0-96.0); MONO # 0.9 10^3/uL (0.0-0.8); MONO % 8.8 % (0.0-5.0); NEUTROPHILS % 57.5 % (36.0-66.0); PLATELET COUNT, AUTOMATED 202 10^3/uL (150-450); RED BLOOD COUNT 4.91 10^6/uL (4.30-6.10); RED CELL DISTRIBUTION WIDTH 13.1 % (11.5-14.5); WHITE BLOOD COUNT 10.5 10^3/uL (4.0-10.0)
[2017-12-09 15:58] LABS: ERYTHROCYTE SEDIMENTATION RATE 7 mm/hr (0-15)
== END ==
LOC: M SFHCPLAZ 13:30
DX: L03.114 Cellulitis of left upper limb (principal)

== ENCOUNTER 2018-04-10 23:21 | Emergency (ER) | payer OTHER ==
[2018-04-10 23:56] LABS: BASO % 0.5 % (0.0-1.0); EOS # 0.1 10^3/uL (0.0-0.50); EOS % 0.9 % (0.0-3.0); HEMATOCRIT 47.9 % (42.0-52.0); HEMOGLOBIN 16.5 g/dl (13.5-17.5); IMMATURE GRANULOCYTE % 0.2 % (0-3.0); LYMPH # 2.2 10^3/uL (1.5-4.5); LYMPH % 25.1 % (24.0-44.0); MEAN CORPUSCULAR HEMOGLOBIN 31.6 pg (27.0-33.0); MEAN CORPUSCULAR HGB CONC 34.4 g/dl (32.0-36.5); MEAN CORPUSCULAR VOLUME 91.8 fl (80.0-96.0); MONO # 0.7 10^3/uL (0.0-0.8); NEUTROPHILS # 5.8 10^3/uL (1.8-7.7); NEUTROPHILS % 65.3 % (36.0-66.0); PLATELET COUNT, AUTOMATED 195 10^3/uL (150-450); RED BLOOD COUNT 5.22 10^6/uL (4.30-6.10); WHITE BLOOD COUNT 8.9 10^3/uL (4.0-10.0)
[2018-04-11 00:05] LABS: INR 0.96; PROTHROMBIN TIME 12.9 SECONDS (12.1-14.4)
[2018-04-11 00:06] LABS: PARTIAL THROMBOPLASTIN TIME 38.6 SECONDS (25.4-37.6)
[2018-04-11] MEDS: ASPIRIN 325 MG TAB PO (00:10)
[2018-04-11 00:18] LABS: ANION GAP 11 MEQ/L (8-16); BLOOD UREA NITROGEN 17 MG/DL (7-18); CALCIUM LEVEL 8.7 MG/DL (8.5-10.1); CARBON DIOXIDE LEVEL 24 MEQ/L (21-32); CHLORIDE LEVEL 106 MEQ/L (98-107); CPK CREATINE PHOSPHOKINASE 131 U/L (39-308); CREATININE FOR GFR 0.84 MG/DL (0.70-1.30); GLOMERULAR FILTRATION RATE > 60.0 (>60); GLUCOSE, FASTING 97 MG/DL (70-100); MB/CK RELATIVE INDEX 1.07 (< OR =4); POTASSIUM SERUM 3.9 MEQ/L (3.5-5.1); SODIUM LEVEL 141 MEQ/L (136-145); TROPONIN I < 0.02 NG/ML (< 0.10)
[2018-04-11] MEDS ORDERED: ISOVUE-370 76% 100ML VIAL (Q9967) As Ordered (00:40)
[2018-04-11 03:15] LABS: CPK CREATINE PHOSPHOKINASE 122 U/L (39-308); MB/CK RELATIVE INDEX 1.07 (< OR =4); TROPONIN I 0.02 NG/ML (< 0.10)
== END 2018-04-11 03:30 | disposition home or self-care (01) ==
LOC: M ED 04-11 03:30
DX: R07.89 Other chest pain (principal); I10 Essential (primary) hypertension; F17.210 Nicotine dependence, cigarettes, uncomplicated
CPT/HCPCS: Q9967

== ENCOUNTER 2018-07-30 00:05 | Emergency (ER) | payer OTHER ==
[~2018-07-30] VITALS: Ht 182.9 cm; Wt 118.6 kg
[~2018-07-30 00:05] MED LIST changes: +COLA100C5 PO; +LISI10TA4 PO; +MIRA3350 PO; -NORC1TAB4 PO; +NORC1TAB7 PO
--- NOTE | 2018-07-30 01:23 | REPVR ---
EXAM: US Scrotum EXAM DATE/TIME: 07/30/18 (12:41am CLINICAL HISTORY: 48 year old male with testicular / groin pain TECHNIQUE: Imaging protocol: Real-time ultrasound of the scrotum and contents with color Doppler and image documentation. COMPARISON: No relevant prior studies available FINDINGS: Right Testicle: Normal. No mass nor torsion. Normal vascular flow. Right testis measures 4.4 x 2.1 x 3.5 cm in dimensions. Left Testicle: Normal. No mass nor torsion. Normal vascular flow. Left testis measures 4.6 x 2.4 x 2.8 cm in dimensions. Epididymides: Simple left epididymal head cyst (5 mm diameter). A right epididymal appendix is observed (a developmental remnant). Fluid: Moderately-sized right hydrocele. Scrotum: Normal. IMPRESSION: No acute pathology. No testicular mass nor torsion is identified. Small left epididymal head cyst (5 mm size). Right-sided hydrocele. Electronically signed by: Seema Louie On 07/30/2018 01:23:24 AM
[2018-07-30 02:16] VITALS: BP 137/73
== END 2018-07-30 02:18 | disposition home or self-care (01) ==
LOC: M ED 00:05
DX: K40.90 Unilateral inguinal hernia, without obstruction or gangrene, not specified as recurrent (principal); R31.29 Other microscopic hematuria; N50.3 Cyst of epididymis; N43.3 Hydrocele, unspecified; K21.9 Gastro-esophageal reflux disease without esophagitis; N28.1 Cyst of kidney, acquired; Z72.0 Tobacco use; Z79.899 Other long term (current) drug therapy

== ENCOUNTER 2018-10-17 01:14 | Emergency (ER) | payer OTHER ==
[~2018-10-17] VITALS: Ht 182.9 cm; Wt 113.6 kg
[2018-10-17] MEDS ORDERED: CEPHALEXIN 500 MG CAP PO ONE (04:00)
[2018-10-17] MEDS ORDERED: KEFL500C17 PO (04:00)
[2018-10-17 04:19] VITALS: BP 127/69
== END 2018-10-17 04:20 | disposition home or self-care (01) ==
LOC: M ED 01:14
DX: L03.114 Cellulitis of left upper limb (principal); I10 Essential (primary) hypertension; Z79.899 Other long term (current) drug therapy; F17.210 Nicotine dependence, cigarettes, uncomplicated

== ENCOUNTER → 2018-12-02 | Outpatient (REF) | payer OTHER | LOC: M SFHCPLAZ 15:42 | PROVIDERS: ATTEND Student in an Organized Health Care Education/Training Program | DX: R30.0 Dysuria (principal) ==

== ENCOUNTER 2019-02-26 01:16 | Emergency (ER) | payer OTHER ==
[~2019-02-26] VITALS: Ht 182.9 cm; Wt 118.2 kg
[~2019-02-26 01:16] MED LIST changes: -OMEP40CA2 PO; +OMEP40CA97 PO
[2019-02-26] MEDS ORDERED: AUGMENTIN 875 MG TAB PO ONE (02:30)
[2019-02-26] MEDS ORDERED: AUGM500T34 PO (02:31)
[2019-02-26 02:42] VITALS: BP 143/86
== END 2019-02-26 02:43 | disposition home or self-care (01) ==
LOC: M ED 01:16
DX: J02.9 Acute pharyngitis, unspecified (principal); F17.200 Nicotine dependence, unspecified, uncomplicated; I10 Essential (primary) hypertension; K21.9 Gastro-esophageal reflux disease without esophagitis; Z79.899 Other long term (current) drug therapy

== ENCOUNTER 2019-06-12 01:40 | Emergency (ER) | payer OTHER, SELFPAY ==
[~2019-06-12] VITALS: Ht 182.9 cm; Wt 120.8 kg
[~2019-06-12 01:40] MED LIST changes: +AUGM500T34 PO
[2019-06-12 01:41] VITALS: BP 171/93
== END 2019-06-12 05:55 | disposition left against medical advice (07) ==
LOC: M ED 01:40
DX: Z53.21 Procedure and treatment not carried out due to patient leaving prior to being seen by health care provider (principal)

== ENCOUNTER 2019-06-15 21:47 | Emergency (ER) | payer OTHER, SELFPAY ==
[~2019-06-15] VITALS: Ht 182.9 cm; Wt 113.6 kg
[2019-06-15 21:52] VITALS: BP 141/80
[2019-06-15] MEDS ORDERED: AMOX500C PO (22:06)
[2019-06-15 23:00] LABS: INFLUENZA A AMPLIFICATION POSITIVE (NEGATIVE); INFLUENZA B AMPLIFICATION NEGATIVE (NEGATIVE)
[2019-06-16] MEDS ORDERED: BENZONATATE 100 MG CAP PO ONE (00:30)
[2019-06-16] MEDS ORDERED: ALBUTEROL SULFATE 2.5 MG/0.5 ML INH NEB SOLN NEB ONE (00:30)
[2019-06-16] MEDS ORDERED: OSELTAMIVIR PHOSPHATE 75 MG CAP (TAMIFLU) PO ONE (00:30)
[2019-06-16] MEDS ORDERED: GI COCKTAIL 50ML BTL(HYOSCYAMINE/MAALOX/LIDOCAINE VISCOUS)(1:3:1) PO ONE (00:30)
[2019-06-16] MEDS ORDERED: PROAAER10 INH (01:11)
[2019-06-16] MEDS ORDERED: OSEL75CA PO (01:11)
[2019-06-16] MEDS ORDERED: TESS100C PO (01:11)
[2019-06-16] MEDS ORDERED: IBUP-1022 PO (01:11)
--- NOTE | 2019-06-16 07:53 | REP ---
Clinical: Cough . Comparison: 12/21/2016 . Technique: PA and lateral. Findings: The mediastinum and cardiac silhouette are normal. The lung ignacio are clear and without acute consolidation, effusion, or pneumothorax. The skeletal structures are intact and normal. Impression: 1. No acute cardiopulmonary process. Electronically Signed by Fabio Thomas MD 06/16/2019 07:44 A
== END 2019-06-16 01:24 | disposition home or self-care (01) ==
LOC: M ED 21:47
DX: J09.X2 Influenza due to identified novel influenza A virus with other respiratory manifestations (principal); R06.02 Shortness of breath; I10 Essential (primary) hypertension; Z79.899 Other long term (current) drug therapy; Z79.2 Long term (current) use of antibiotics

== ENCOUNTER 2019-06-18 13:34 | Emergency (ER) | payer OTHER, SELFPAY ==
[~2019-06-18] VITALS: Ht 182.9 cm; Wt 116.7 kg
[~2019-06-18 13:34] MED LIST changes: +AMOX500C PO; +IBUP-1022 PO; +OSEL75CA PO; +PROAAER10 INH; +TESS100C PO
[2019-06-18] MEDS ORDERED: ONDA4TAB6 PO (14:20)
[2019-06-18 14:22] VITALS: BP 126/78
== END 2019-06-18 14:50 | disposition home or self-care (01) ==
LOC: M ED 13:34
DX: J09.X3 Influenza due to identified novel influenza A virus with gastrointestinal manifestations (principal); I10 Essential (primary) hypertension; K21.9 Gastro-esophageal reflux disease without esophagitis; Z79.899 Other long term (current) drug therapy; Z79.1 Long term (current) use of non-steroidal anti-inflammatories (NSAID); F17.200 Nicotine dependence, unspecified, uncomplicated

== ENCOUNTER 2019-06-20 14:09 | Emergency (ER) | payer OTHER ==
[~2019-06-20] VITALS: Ht 182.9 cm; Wt 115.9 kg
[~2019-06-20 14:09] MED LIST changes: +ONDA4TAB6 PO
--- NOTE | 2019-06-20 15:55 | REP ---
Clinical: productive cough . Comparison: 06/15/2019 . Technique: PA and lateral. Findings: The mediastinum and cardiac silhouette are normal. The lung ignacio are clear and without acute consolidation, effusion, or pneumothorax. The skeletal structures are intact and normal. Impression: 1. No acute cardiopulmonary process. Electronically Signed by Fabio Thomas MD 06/20/2019 03:46 P
[2019-06-20 16:16] VITALS: BP 143/89
== END 2019-06-20 16:17 | disposition home or self-care (01) ==
LOC: M ED 14:09
DX: J32.9 Chronic sinusitis, unspecified (principal)

== ENCOUNTER → 2019-10-24 | Outpatient (REF) | payer OTHER | LOC: M LAB REF 10:00 | PROVIDERS: ATTEND Physician Assistant | DX: J20.9 Acute bronchitis, unspecified (principal) ==

== ENCOUNTER → 2019-11-09 | Outpatient (CLI) | payer OTHER ==
[~2019-11-09] MED LIST changes: +ACET-683 PO; +CIPR-249 PO; +DOXY100C37; +FLAG500T PO; +MUCI600T31 PO; +PRED10TA2 PO; +PRED20TA
--- NOTE | 2019-11-10 07:27 | REP ---
TWO-VIEW CHEST: REASON: Asthma. COMPARISON: No priors. FINDINGS: The superior mediastinal structures are midline. The cardiac silhouette is unremarkable in size, shape, and position. The diaphragmatic surfaces of the lungs are regular, and the costophrenic angles are clear. The pulmonary ignacio are clear. The imaged osseous structures are intact. IMPRESSION: There is no acute cardiopulmonary disease. Electronically Signed by Stan Avila DO 11/10/2019 09:27 A
== END ==
LOC: M WUC 14:02
PROVIDERS: ATTEND Physician Assistant
DX: J45.21 Mild intermittent asthma with (acute) exacerbation (principal); Z72.0 Tobacco use

== ENCOUNTER 2019-11-11 01:42 | Emergency (ER) | payer OTHER ==
[~2019-11-11] VITALS: Ht 182.9 cm; Wt 97.6 kg
[~2019-11-11 01:42] MED LIST changes: -ACET-683 PO; -CIPR-249 PO; -DOXY100C37; -FLAG500T PO; -MUCI600T31 PO; -PRED10TA2 PO; -PRED20TA
[2019-11-11] MEDS ORDERED: PRED20TA (01:55)
[2019-11-11] MEDS ORDERED: DOXY100C37 (01:55)
[2019-11-11] MEDS ORDERED: PRED10TA2 PO (04:38)
[2019-11-11 05:13] VITALS: BP 148/92
== END 2019-11-11 05:14 | disposition home or self-care (01) ==
LOC: M ED 01:42
DX: J44.9 Chronic obstructive pulmonary disease, unspecified (principal); I10 Essential (primary) hypertension; F17.200 Nicotine dependence, unspecified, uncomplicated; Z79.1 Long term (current) use of non-steroidal anti-inflammatories (NSAID); Z79.51 Long term (current) use of inhaled steroids; Z79.899 Other long term (current) drug therapy

== ENCOUNTER → 2019-11-29 | Emergency (ER) | payer OTHER ==
[~2019-11-29] MED LIST changes: +ACET-683 PO; +ACETAMINOPHEN 500 MG TAB As Ordered ONE; +CIPR-249 PO; +DOXY100C37; +FLAG500T PO; +MUCI600T31 PO; +PRED10TA2 PO; +PRED20TA
== END | disposition home or self-care (01) ==
LOC: M ED 21:54
DX: Z53.21 Procedure and treatment not carried out due to patient leaving prior to being seen by health care provider (principal)

== ENCOUNTER 2019-12-05 | Emergency (ER) | payer OTHER ==
[~2019-12-05] MED LIST changes: -ACET-683 PO; -ACETAMINOPHEN 500 MG TAB As Ordered ONE; -CIPR-249 PO; -FLAG500T PO; -MUCI600T31 PO
[2019-12-05] MEDS ORDERED: predniSONE 20 MG TAB As Ordered ONE (01:17)
[2019-12-05] MEDS ORDERED: predniSONE 20 MG TAB ONE (01:17)
== END 2019-12-05 01:26 | disposition home or self-care (01) ==
LOC: M ED
DX: R21 Rash and other nonspecific skin eruption (principal); I10 Essential (primary) hypertension; Z79.899 Other long term (current) drug therapy; Z79.2 Long term (current) use of antibiotics

== ENCOUNTER 2020-01-21 23:41 | Emergency (ER) | payer OTHER ==
[~2020-01-21] VITALS: Ht 182.9 cm; Wt 122.2 kg
[~2020-01-21 23:41] MED LIST changes: -ACET-683 PO; -CIPR-249 PO; -FLAG500T PO; -MUCI600T31 PO
[2020-01-22 00:33] LABS: APPEARANCE, URINE CLEAR (CLEAR); BACTERIA, URINE AUTO NEGATIVE (NEGATIVE); BILIRUBIN, URINE AUTO NEGATIVE (NEGATIVE); BLOOD, URINE BLOOD 1+ (NEGATIVE); COLOR, URINE YELLOW (YELLOW); GLUCOSE, URINE (UA) AUTO NEGATIVE (NEGATIVE); KETONE, URINE AUTO TRACE mg/dL (NEGATIVE); LEUKOCYTE ESTERASE, URINE AUTO NEGATIVE (NEGATIVE); NITRITE, URINE AUTO NEGATIVE (NEGATIVE); PROTEIN, URINE AUTO NEGATIVE (NEGATIVE); RBC, URINE AUTO 4 /HPF (0-3); SPECIFIC GRAVITY URINE AUTO 1.017 (1.002-1.035); SQUAMOUS EPITHELIAL CELL UR AU 0 /HPF (0-6); UROBILINOGEN, URINE AUTO 0.2 mg/dL (0.0-2.0); WBC, URINE AUTO 0 /HPF (0-3)
[2020-01-22 01:16] LABS: BASO # 0.1 10^3/uL (0.0-0.2); BASO % 0.4 % (0.0-1.0); EOS # 0.1 10^3/uL (0.0-0.5); EOS % 0.9 % (0.0-3.0); HEMATOCRIT 48.1 % (42.0-52.0); HEMOGLOBIN 16.5 g/dl (13.5-17.5); LYMPH # 2.1 10^3/uL (1.5-5.0); LYMPH % 16.2 % (24.0-44.0); MEAN CORPUSCULAR HEMOGLOBIN 32.2 pg (27.0-33.0); MEAN CORPUSCULAR HGB CONC 34.3 g/dl (32.0-36.5); MEAN CORPUSCULAR VOLUME 93.9 fl (80.0-96.0); MONO % 7.5 % (0.0-5.0); NEUTROPHILS # 9.4 10^3/uL (1.5-8.5); NEUTROPHILS % 74.7 % (36.0-66.0); PLATELET COUNT, AUTOMATED 181 10^3/uL (150-450); RED BLOOD COUNT 5.12 10^6/uL (4.30-6.10); WHITE BLOOD COUNT 12.6 10^3/uL (4.0-10.0)
[2020-01-22 01:23] LABS: ALBUMIN 4.1 GM/DL (3.2-5.2); BILIRUBIN,DIRECT 0.1 MG/DL (0.0-0.2); BILIRUBIN,TOTAL 0.3 MG/DL (0.2-1.0); TOTAL PROTEIN 6.9 GM/DL (6.4-8.2)
[2020-01-22] MEDS ORDERED: ISOVUE-370 76% 100ML VIAL As Ordered ONE (01:56)
--- NOTE | 2020-01-22 02:09 | REPVR ---
PROCEDURE INFORMATION: Exam: CT Abdomen And Pelvis With Contrast Exam date and time: 01/22/2020 1:23 AM Age: 49 years old Clinical indication: Abdominal pain; Localized; Left lower quadrant (llq); Additional info: Llq pain, concern diverticulitis TECHNIQUE: Imaging protocol: Computed tomography of the abdomen and pelvis with intravenous contrast. Radiation optimization: All CT scans at this facility use at least one of these dose optimization techniques: automated exposure control; mA and/or kV adjustment per patient size (includes targeted exams where dose is matched to clinical indication); or iterative reconstruction. Contrast material: ISO; Contrast volume: 100 ml; Contrast route: INTRAVENOUS (IV); COMPARISON: CT ABD PELVIS WITH CONTRAST 12/22/2016 9:04 AM FINDINGS: Lungs: No suspicious mass or airspace process in the visualized lung bases. Liver: Borderline hepatic enlargement. No focal lesion. Gallbladder and bile ducts: Gallbladder is present and shows no evidence of gallstone. Pancreas: Pancreas appears normal. No focal mass or peripancreatic inflammation. Spleen: Spleen appears homogeneous without focal mass. Adrenals: Adrenal glands are normal in appearance. Kidneys and ureters: Kidneys are normal aside from an incidental simple fluid density 5 cm left renal cyst which requires no follow-up. Stomach and bowel: No evidence of small bowel obstruction. Sigmoid colon wall thickening, adjacent fat stranding and regional diverticula suggests acute diverticulitis without perforation or abscess formation at this point. Appendix: Appendix is not seen. No RLQ inflammation to suggest appendicitis. Intraperitoneal space: No pneumoperitoneum. Vasculature: No aortic aneurysm. Main portal and splenic veins enhance normally. Lymph nodes: No enlarged lymph nodes. Bladder: Urinary bladder appears normal. Bones/joints: Bony structures show no acute fracture or destructive process. Soft tissues: No effacement of normal fat planes in the ischiorectal fossa. IMPRESSION: Mild acute sigmoid diverticulitis. No obstruction or perforation. Electronically signed by: Eliu Kc On 01/22/2020 02:08:50 AM
[2020-01-22] MEDS ORDERED: CIPR-249 PO (02:24)
[2020-01-22] MEDS ORDERED: FLAG500T PO (02:24)
[2020-01-22 02:30] VITALS: BP 133/77
[2020-01-22] MEDS ORDERED: metroNIDAZOLE (FLAGYL) 500MG TABLET PO ONE (02:30)
[2020-01-22] MEDS ORDERED: CIPROFLOXACIN 500MG TABLET PO ONE (02:30)
== END 2020-01-22 02:40 | disposition home or self-care (01) ==
LOC: M ED 23:41
DX: K57.30 Diverticulosis of large intestine without perforation or abscess without bleeding (principal); I10 Essential (primary) hypertension; K21.9 Gastro-esophageal reflux disease without esophagitis; F17.200 Nicotine dependence, unspecified, uncomplicated; Z79.51 Long term (current) use of inhaled steroids; Z79.899 Other long term (current) drug therapy; Z79.52 Long term (current) use of systemic steroids
CPT/HCPCS: 74177; 80047; 80076; 81001; 83690; 85025; 87086; 99284; Q9967

== ENCOUNTER → 2020-01-21 | Outpatient (REF) | payer OTHER ==
[~2020-01-21] MED LIST changes: +ACET-683 PO; +CIPR-249 PO; +FLAG500T PO; +MUCI600T31 PO
== END ==
LOC: M LAB REF 16:02
PROVIDERS: ATTEND Physician Assistant
DX: R30.0 Dysuria (principal)

== ENCOUNTER 2020-01-25 22:53 | Emergency (ER) | payer OTHER ==
[~2020-01-25] VITALS: Ht 182.9 cm; Wt 122.0 kg
[~2020-01-25 22:53] MED LIST changes: +CIPR-249 PO; +FLAG500T PO
[2020-01-25 22:54] VITALS: BP 154/94
[2020-01-25] MEDS ORDERED: ACET-683 PO (23:11)
[2020-01-25] MEDS ORDERED: PRED20TA (23:11)
[2020-01-26] MEDS: IPRATROPIUM 0.5MG/ALBUTEROL 2.5MG INH SOL UD 3ML (DUONEB) NEB SCH ×3 (01:25→01:43)
--- NOTE | 2020-01-26 02:22 | REPVR ---
PROCEDURE INFORMATION: Exam: XR Chest, 2 Views Exam date and time: 01/26/20 (1:45am) Age: 49 years old Clinical indication: COPD exacerbation TECHNIQUE: Imaging protocol: XR of the chest Views: 2 views COMPARISON: Chest films of 06/20/19 FINDINGS: Lungs: Unremarkable. No consolidation. Pleural space: Unremarkable. No pleural effusions. No pneumothorax. Heart/Mediastinum: Unremarkable. No cardiomegaly. Bones/joints: Unremarkable. IMPRESSION: No acute findings. The lung ignacio remain clear. Electronically signed by: Seema Louie On 01/26/2020 02:21:44 AM
[2020-01-26] MEDS ORDERED: AUGM875T28 PO (03:10)
[2020-01-26] MEDS ORDERED: MUCI600T31 PO (03:11)
== END 2020-01-26 03:26 | disposition home or self-care (01) ==
LOC: M ED 22:53
DX: J44.0 Chronic obstructive pulmonary disease with (acute) lower respiratory infection (principal); I10 Essential (primary) hypertension; F17.200 Nicotine dependence, unspecified, uncomplicated; Z79.51 Long term (current) use of inhaled steroids; Z79.899 Other long term (current) drug therapy

== ENCOUNTER → 2020-02-13 | Outpatient (CLI) | payer OTHER ==
[~2020-02-13] MED LIST changes: +ACET-683 PO; +MUCI600T31 PO
[2020-02-13 17:37] LABS: BASO # 0.1 10^3/uL (0.0-0.2); BASO % 0.4 % (0.0-1.0); EOS # 0.1 10^3/uL (0.0-0.5); EOS % 1.2 % (0.0-3.0); HEMATOCRIT 48.8 % (42.0-52.0); HEMOGLOBIN 16.2 g/dl (13.5-17.5); LYMPH # 1.9 10^3/uL (1.5-5.0); LYMPH % 16.1 % (24.0-44.0); MEAN CORPUSCULAR HEMOGLOBIN 32.4 pg (27.0-33.0); MEAN CORPUSCULAR HGB CONC 33.2 g/dl (32.0-36.5); MEAN CORPUSCULAR VOLUME 97.6 fl (80.0-96.0); MONO % 8.1 % (0.0-5.0); NEUTROPHILS # 8.9 10^3/uL (1.5-8.5); NEUTROPHILS % 73.9 % (36.0-66.0); PLATELET COUNT, AUTOMATED 229 10^3/uL (150-450); WHITE BLOOD COUNT 12.1 10^3/uL (4.0-10.0)
[2020-02-13 17:46] LABS: ALBUMIN 3.8 GM/DL (3.2-5.2); ALT/SGPT 67 U/L (12-78); BILIRUBIN,TOTAL 0.6 MG/DL (0.2-1.0); BLOOD UREA NITROGEN 22 MG/DL (7-18); CALCIUM LEVEL 9.6 MG/DL (8.5-10.1); CARBON DIOXIDE LEVEL 30 MEQ/L (21-32); CHLORIDE LEVEL 104 MEQ/L (98-107); CREATININE FOR GFR 0.98 MG/DL (0.70-1.30); GLOMERULAR FILTRATION RATE > 60.0 (>60); GLUCOSE, FASTING 93 MG/DL (70-100); POTASSIUM SERUM 4.7 MEQ/L (3.5-5.1); SODIUM LEVEL 138 MEQ/L (136-145); TOTAL PROTEIN 6.6 GM/DL (6.4-8.2)
== END ==
LOC: M WUC 13:32
PROVIDERS: ATTEND Physician Assistant
DX: R10.30 Lower abdominal pain, unspecified (principal)

== ENCOUNTER → 2020-04-22 | Outpatient (REF) | payer OTHER | LOC: M LAB REF 18:00 | PROVIDERS: ATTEND Physician Assistant Medical | DX: Z11.59 Encounter for screening for other viral diseases (principal) ==

== ENCOUNTER 2020-08-21 01:57 | Emergency (ER) | payer OTHER ==
[~2020-08-21] VITALS: Ht 182.9 cm; Wt 119.0 kg
[~2020-08-21 01:57] MED LIST changes: +LISI10TA22 PO; -LISI10TA4 PO
[2020-08-21 01:58] VITALS: BP 138/91
[2020-08-21] MEDS ORDERED: NYST1POW9 TOP (04:53)
== END 2020-08-21 05:02 | disposition home or self-care (01) ==
LOC: M ED 01:57
DX: B37.0 Candidal stomatitis (principal); R21 Rash and other nonspecific skin eruption; I10 Essential (primary) hypertension; F17.200 Nicotine dependence, unspecified, uncomplicated; Z79.51 Long term (current) use of inhaled steroids; Z79.899 Other long term (current) drug therapy

== ENCOUNTER → 2020-09-01 | Outpatient (CLI) | payer OTHER ==
[~2020-09-01] MED LIST changes: +NYST1POW9 TOP
[2020-09-01 16:16] LABS: BASO % 0.5 % (0.0-1.0); EOS # 0.1 10^3/uL (0.0-0.5); EOS % 1.5 % (0.0-3.0); HEMATOCRIT 50.1 % (42.0-52.0); HEMOGLOBIN 16.7 g/dl (13.5-17.5); LYMPH # 1.7 10^3/uL (1.5-5.0); LYMPH % 22.4 % (24.0-44.0); MEAN CORPUSCULAR HEMOGLOBIN 31.7 pg (27.0-33.0); MEAN CORPUSCULAR HGB CONC 33.3 g/dl (32.0-36.5); MEAN CORPUSCULAR VOLUME 95.1 fl (80.0-96.0); MONO # 0.6 10^3/uL (0.0-0.8); MONO % 8.5 % (2.0-8.0); NEUTROPHILS # 5.1 10^3/uL (1.5-8.5); NEUTROPHILS % 66.7 % (36.0-66.0); PLATELET COUNT, AUTOMATED 174 10^3/uL (150-450); RED BLOOD COUNT 5.27 10^6/uL (4.30-6.10); WHITE BLOOD COUNT 7.6 10^3/uL (4.0-10.0)
[2020-09-01 16:42] LABS: BLOOD UREA NITROGEN 15 MG/DL (7-18); CALCIUM LEVEL 9.3 MG/DL (8.5-10.1); CARBON DIOXIDE LEVEL 27 MEQ/L (21-32); CHLORIDE LEVEL 107 MEQ/L (98-107); CREATININE FOR GFR 0.83 MG/DL (0.70-1.30); GLOMERULAR FILTRATION RATE > 60.0 (>60); GLUCOSE, FASTING 93 MG/DL (70-100); POTASSIUM SERUM 4.7 MEQ/L (3.5-5.1); SODIUM LEVEL 140 MEQ/L (136-145)
== END ==
LOC: M WUC 14:45
PROVIDERS: ATTEND Physician Assistant
DX: R10.30 Lower abdominal pain, unspecified (principal)

== ENCOUNTER → 2022-03-04 | Outpatient (CLI) | payer OTHER ==
[~2022-03-04] MED LIST changes: +DOXY-443; -DOXY100C37; +OMEP40CA4 PO; -OMEP40CA97 PO
== END ==
LOC: M WUC 13:04
PROVIDERS: ATTEND Student in an Organized Health Care Education/Training Program
DX: R06.02 Shortness of breath (principal)

== ENCOUNTER → 2022-04-30 | Outpatient (REF) | payer OTHER | LOC: M WUC 16:17 | PROVIDERS: ATTEND Physician Assistant | DX: R30.0 Dysuria (principal) ==

== ENCOUNTER → 2022-12-06 | Outpatient (CLI) | payer OTHER | LOC: M WUC 12:13 | PROVIDERS: ATTEND Nurse Practitioner Family | DX: M19.041 Primary osteoarthritis, right hand (principal) ==

== ENCOUNTER → 2023-02-12 | Outpatient (CLI) | payer OTHER ==
[2023-02-12 19:11] LABS: BASO % 0.5 % (0.0-1.0); EOS # 0.1 10^3/uL (0.0-0.5); EOS % 1.3 % (0.0-3.0); HEMATOCRIT 50.8 % (42.0-52.0); HEMOGLOBIN 17.7 g/dl (13.5-17.5); LYMPH # 2.3 10^3/uL (1.5-5.0); LYMPH % 26.5 % (24.0-44.0); MEAN CORPUSCULAR HEMOGLOBIN 33.3 pg (27.0-33.0); MEAN CORPUSCULAR HGB CONC 34.8 g/dl (32.0-36.5); MEAN CORPUSCULAR VOLUME 95.5 fl (80.0-96.0); MONO # 0.6 10^3/uL (0.0-0.8); MONO % 6.6 % (2.0-8.0); NEUTROPHILS # 5.7 10^3/uL (1.5-8.5); NEUTROPHILS % 64.9 % (36.0-66.0); PLATELET COUNT, AUTOMATED 175 10^3/uL (150-450); RED BLOOD COUNT 5.32 10^6/uL (4.30-6.10); WHITE BLOOD COUNT 8.8 10^3/uL (4.0-10.0)
[2023-02-12 19:23] LABS: HEMOGLOBIN A1c 4.6 % (4.0-6.0)
[2023-02-12 19:40] LABS: CHOLESTEROL RISK RATIO 2.99 (<5); HDL CHOLESTEROL 44.1 MG/DL (>40); LDL CHOLESTEROL 75.3 MG/DL (<100); NON-HDL-C 87.9 MG/DL
[2023-02-12 19:42] LABS: FREE T4 1.06 NG/DL (0.89-1.76); THYROID STIMULATING HORMONE 1.295 uIU/ML (0.55-4.78)
== END ==
LOC: M WUC 15:07
PROVIDERS: ATTEND Student in an Organized Health Care Education/Training Program
DX: Z13.29 Encounter for screening for other suspected endocrine disorder (principal); Z00.00 Encounter for general adult medical examination without abnormal findings

== ENCOUNTER 2023-02-19 01:04 | Emergency (ER) | payer OTHER ==
[~2023-02-19] VITALS: Ht 182.9 cm; Wt 108.6 kg
[2023-02-19 03:38] LABS: BASO % 0.3 % (0.0-1.0); EOS # 0.1 10^3/uL (0.0-0.5); EOS % 1.4 % (0.0-3.0); HEMOGLOBIN 16.1 g/dl (13.5-17.5); LYMPH # 2.8 10^3/uL (1.5-5.0); LYMPH % 29.5 % (24.0-44.0); MEAN CORPUSCULAR HEMOGLOBIN 32.9 pg (27.0-33.0); MEAN CORPUSCULAR VOLUME 93.9 fl (80.0-96.0); MONO # 0.8 10^3/uL (0.0-0.8); MONO % 8.4 % (2.0-8.0); NEUTROPHILS # 5.7 10^3/uL (1.5-8.5); NEUTROPHILS % 60.2 % (36.0-66.0); PLATELET COUNT, AUTOMATED 178 10^3/uL (150-450); WHITE BLOOD COUNT 9.4 10^3/uL (4.0-10.0)
[2023-02-19] MEDS ORDERED: DOXYCYCLINE HYCLATE 100MG TABLET PO ONE (04:05)
[2023-02-19] MEDS ORDERED: DOXY100C82 PO (04:06)
[2023-02-19 04:10] VITALS: TEMP 97.8
[2023-02-19 04:43] VITALS: BP 133/77; O2SAT 97
== END 2023-02-19 04:44 | disposition home or self-care (01) ==
LOC: M ED 01:04
DX: L03.114 Cellulitis of left upper limb (principal); I10 Essential (primary) hypertension; Z79.899 Other long term (current) drug therapy

== ENCOUNTER 2023-02-23 01:09 | Emergency (ER) | payer OTHER ==
[~2023-02-23] VITALS: Ht 182.9 cm; Wt 108.7 kg
[~2023-02-23 01:09] MED LIST changes: +DOXY100C82 PO
[2023-02-23 02:13] LABS: BASO % 0.3 % (0.0-1.0); EOS # 0.2 10^3/uL (0.0-0.5); EOS % 1.6 % (0.0-3.0); HEMOGLOBIN 16.9 g/dl (13.5-17.5); LYMPH # 2.6 10^3/uL (1.5-5.0); LYMPH % 27.9 % (24.0-44.0); MEAN CORPUSCULAR HEMOGLOBIN 33.1 pg (27.0-33.0); MEAN CORPUSCULAR VOLUME 92.2 fl (80.0-96.0); MONO # 0.7 10^3/uL (0.0-0.8); MONO % 7.8 % (2.0-8.0); NEUTROPHILS # 5.8 10^3/uL (1.5-8.5); NEUTROPHILS % 62.2 % (36.0-66.0); PLATELET COUNT, AUTOMATED 198 10^3/uL (150-450); WHITE BLOOD COUNT 9.3 10^3/uL (4.0-10.0)
[2023-02-23] MEDS ORDERED: NS 1,000 ML IV SCH (02:20)
[2023-02-23] MEDS ORDERED: ISOVUE-370 76% 100ML VIAL As Ordered ONE (02:26)
[2023-02-23] MEDS ORDERED: CIPROFLOXACIN 400 MG in IV 1 EA IV ONE (04:50)
[2023-02-23] MEDS ORDERED: metroNIDAZOLE (FLAGYL) 500MG TABLET PO ONE (04:50)
[2023-02-23] MEDS ORDERED: CIPR-249 PO (05:12)
[2023-02-23] MEDS ORDERED: METR-265 PO (05:13)
[2023-02-23 06:20] VITALS: BP 131/81; TEMP 98.2; O2SAT 97
[2023-02-23 12:03] LABS: ALBUMIN 4.5 G/DL (3.9-5.0); ALKALINE PHOSPHATASE 71 U/L (40-129); ALT/SGPT 26 U/L (1-41); AST/SGOT 17 U/L (5-40); BILIRUBIN,DIRECT < 0.2 MG/DL (0.1-0.4); BILIRUBIN,TOTAL < 0.7 MG/DL (0.2-1.3); LIPASE 64 U/L (13-60); TOTAL PROTEIN 6.8 G/DL (6.3-8.2)
== END 2023-02-23 06:21 | disposition home or self-care (01) ==
LOC: M ED 01:09
DX: K57.32 Diverticulitis of large intestine without perforation or abscess without bleeding (principal); K63.2 Fistula of intestine; I10 Essential (primary) hypertension; Z79.899 Other long term (current) drug therapy
CPT/HCPCS: 74177; 80047; 80076; 83690; 85025; 93041; 96361; 96365; 99284; J0744; Q9967

== ENCOUNTER → 2023-03-24 | Outpatient (CLI) | payer OTHER ==
[~2023-03-24] MED LIST changes: +METR-265 PO
== END ==
LOC: M LAB 13:58
PROVIDERS: ATTEND Surgery
DX: K57.30 Diverticulosis of large intestine without perforation or abscess without bleeding (principal)

== ENCOUNTER → 2023-05-26 | Outpatient (CLI) | payer OTHER ==
[~2023-05-26] MED LIST changes: +ALBU8.5H INH; +GASTROGRAFIN SOLUTION 30ML As Ordered ONE; +ISOVUE-370 76% 100ML VIAL As Ordered ONE
== END ==
LOC: M RAD 09:14
PROVIDERS: ATTEND Surgery
DX: K57.30 Diverticulosis of large intestine without perforation or abscess without bleeding (principal)
CPT/HCPCS: 74177; Q9963; Q9967

== ENCOUNTER → 2023-12-30 | Outpatient (REF) | payer OTHER ==
[~2023-12-30] MED LIST changes: +CEPH500C PO; +DOXY-323; -DOXY-443; -GASTROGRAFIN SOLUTION 30ML As Ordered ONE; -ISOVUE-370 76% 100ML VIAL As Ordered ONE; +ONDA-282 PO; -ONDA4TAB6 PO
== END ==
LOC: M SFHCPLAZ 14:57
PROVIDERS: ATTEND Student in an Organized Health Care Education/Training Program
DX: N32.1 Vesicointestinal fistula (principal)

== ENCOUNTER → 2024-06-21 | Outpatient (REF) | payer OTHER ==
[~2024-06-21] MED LIST changes: -DOXY-323; +DOXY-441; +NYST1POW3 TOP; -NYST1POW9 TOP
== END ==
LOC: M PLALAB 14:15
PROVIDERS: ATTEND Physician Assistant
DX: R97.20 Elevated prostate specific antigen [PSA] (principal)

== ENCOUNTER → 2024-06-21 | Outpatient (CLI) | payer OTHER ==
[2024-06-21 14:07] LABS: BASO # 0.1 10^3/uL (0.0-0.2); BASO % 0.5 % (0.0-1.0); EOS # 0.1 10^3/uL (0.0-0.5); EOS % 1.2 % (0.0-3.0); HEMATOCRIT 48.1 % (42.0-52.0); HEMOGLOBIN 16.3 g/dl (13.5-17.5); LYMPH % 20.6 % (24.0-44.0); MEAN CORPUSCULAR HEMOGLOBIN 32.3 pg (27.0-33.0); MEAN CORPUSCULAR HGB CONC 33.9 g/dl (32.0-36.5); MEAN CORPUSCULAR VOLUME 95.2 fl (80.0-96.0); MONO # 0.8 10^3/uL (0.0-0.8); MONO % 7.7 % (2.0-8.0); NEUTROPHILS # 6.8 10^3/uL (1.5-8.5); NEUTROPHILS % 69.7 % (36.0-66.0); PLATELET COUNT, AUTOMATED 192 10^3/uL (150-450); RED BLOOD COUNT 5.05 10^6/uL (4.30-6.10); WHITE BLOOD COUNT 9.8 10^3/uL (4.0-10.0)
[2024-06-21 14:38] LABS: ALBUMIN 3.9 G/DL (3.2-5.2); ALKALINE PHOSPHATASE 62 U/L (40-129); ALT/SGPT 22 U/L (7.0-40); AST/SGOT 14 U/L (<34); BILIRUBIN,TOTAL 0.5 MG/DL (0.3-1.2); BLOOD UREA NITROGEN 11 MG/DL (9-23); CALCIUM LEVEL 9.7 MG/DL (8.5-10.1); CARBON DIOXIDE LEVEL 28 MMOL/L (20-31); CHLORIDE LEVEL 105 MMOL/L (98-107); CHOLESTEROL LEVEL 120 MG/DL (<200); CHOLESTEROL RISK RATIO 2.63 (<5); CREATININE FOR GFR 0.99 MG/DL (0.70-1.30); GLOMERULAR FILTRATION RATE > 60.0 (>56); GLUCOSE, FASTING 89 MG/DL (60-100); HDL CHOLESTEROL 45.6 MG/DL (>40); NON-HDL-C 74.4 MG/DL; POTASSIUM SERUM 4.7 MMOL/L (3.5-5.1); SODIUM LEVEL 140 MMOL/L (136-145); TOTAL PROTEIN 6.8 G/DL (5.7-8.2); TRIGLYCERIDES LEVEL 67 MG/DL (<150)
[2024-06-21 14:43] LABS: HEMOGLOBIN A1c 4.8 % (4.0-6.0)
== END ==
LOC: M PLALAB 10:30
PROVIDERS: ATTEND Student in an Organized Health Care Education/Training Program
DX: Z00.00 Encounter for general adult medical examination without abnormal findings (principal)